=== PATIENT | male | born 1935 | race Caucasian/White ===

== ENCOUNTER 2017-07-18 18:01 | Inpatient (IN) | payer MEDICARE, OTHER ==
[~2017-07-18] VITALS: Ht 157.5 cm; Wt 75.5 kg
[2017-07-18 18:07] VITALS: Ht 157.5 cm; Wt 75.5 kg
--- NOTE | 2017-07-18 19:40 | ERA ---
ER Documentation Chief Complaint Date/Time DATE: 07/18/17 TIME: 19:37 Chief Complaint PT SENT BY PMD FOR HYPOGLYCEMIA HPI Patient is an 81-year-old male who presents to the ER asymptomatic with a low blood sugar reading in clinic of 41. He states that he had a routine visit with his primary care physician who checked his blood sugar and found it to be low. He takes metformin and glipizide, and last took these medications at 930 this morning. He states that he has been eating normally today. He denies dizziness, generalized weakness, diaphoresis, nausea. He denies fever.His PMD is concerned that he may have taken extra doses of his medication. ROS All systems reviewed and are negative except as per history of present illness. Medications Home Meds Reported Medications Beclomethasone Dip* (Qvar 40*) 7.3 Gm Inha, 1 PUFF INH BID, #1 INHALER 07/18/17 Aspirin (Aspir-Low) 81 Mg Tablet.dr, 81 MG PO DAILY 07/18/17 Rosuvastatin Calcium* (Crestor*) 40 Mg Tablet, 40 MG PO QHS, #30 TAB 07/18/17 Clopidogrel Bisulfate* (Clopidogrel Bisulfate*) 75 Mg Tablet, 75 MG PO DAILY, # 30 TAB 07/18/17 Omeprazole* (Omeprazole*) 20 Mg Capsule.dr, 20 MG PO BID, #60 CAP 07/18/17 Tamsulosin Hcl* (Tamsulosin Hcl*) 0.4 Mg Cap.er.24h, 0.4 MG PO DAILY, CAP 07/18/17 Metformin* (Glucophage*) 500 Mg Tab, 500 MG PO WITH LUNCH DINNER, #60 TAB 07/18/17 Clonazepam* (Clonazepam*) 0.5 Mg Tablet, 0.5 MG PO QHS, TAB 07/18/17 Allergies Allergies: Coded Allergies: No Known Allergy (Verified , 07/18/17) PMhx/Soc Past medical history: Diabetes mellitus, hypertension, peripheral vascular disease, atrial fibrillation (based on admission in 2006, patient is not aware of this diagnosis) Past surgical history: Pacemaker Social history: Denies tobacco or alcohol FmHx Family History: No coronary disease, No diabetes Physical Exam Vitals Vital Signs Date Time Temp Pulse Resp B/P Pulse Ox O2 Delivery O2 Flow Rate FiO2 07/18/17 22:00 97.3 104 18 168/97 96 Room Air 07/18/17 19:20 97.3 105 18 174/86 100 Room Air 07/18/17 18:07 97.3 84 18 172/87 99 Physical Exam Const: Alert, no acute distress Head: Atraumatic Eyes: Normal Conjunctiva, No pallor, no icterus ENT: Normal External Ears, Nose and Mouth. Moist mucous membranes. Neck: Full range of motion..~ No meningismus. Resp: Clear to auscultation bilaterally, No wheezes, no rales Cardio: Irregularly irregular rhythm, mild tachycardia, no murmurs Abd: Soft, non tender, non distended. Skin: No petechiae or rashes Back: No midline or flank tenderness Ext: No cyanosis, or edema Neur: Awake and alert, Cranial nerves II through XII intact bilaterally, strength and sensation full in 4 extremities. Psych: Normal Mood and Affect Result Diagram: 07/18/17194307/18/171944 Results 24 hrs Laboratory Tests Test 07/18/17 19:06 07/18/17 19:44 07/18/17 19:45 07/18/17 20:59 Bedside Glucose 81mg/dL 41mg/dL White Blood Count 6.910^3/ul Red Blood Count 4.5210^6/ul Hemoglobin 14.0g/dl Hematocrit 41.2% Mean Corpuscular Volume 91.2fl Mean Corpuscular Hemoglobin 31.0pg Mean Corpuscular Hemoglobin Concent 34.0g/dl Red Cell Distribution Width 15.7% Platelet Count 84493^3/UL Mean Platelet Volume 9.9fl Neutrophils % 82.1% Lymphocytes % 8.1% Monocytes % 7.8% Eosinophils % 1.4% Basophils % 0.3% Nucleated Red Blood Cells % 0.0/100WBC Neutrophils # (Manual) 5.710^3/ul Lymphocytes # 0.610^3/ul Monocytes # 0.510^3/ul Eosinophils # 0.110^3/ul Basophils # 0.010^3/ul Nucleated Red Blood Cells # 0.010^3/ul Sodium Level 139mmol/L Potassium Level 4.5mmol/L Chloride Level 104mmol/L Carbon Dioxide Level 25mmol/L Anion Gap 15 Blood Urea Nitrogen 20mg/dl Creatinine 1.63mg/dl Glucose Level 38mg/dl Calcium Level 9.7mg/dl Test 07/18/17 21:55 07/18/17 22:31 07/18/17 23:01 07/18/17 23:34 Bedside Glucose 26mg/dL 78mg/dL 44mg/dL 47mg/dL Current Medications Medications (Trade) Dose Ordered Sig/Alina Route PRN Reason Start Time Stop Time Status Last Admin Dose Admin Octreotide Acetate (Sandostatin) 50 mcg ONCE ONCE SC 07/18/17 21:00 07/18/17 21:01 DC 07/18/17 21:27 Ondansetron HCl (Zofran Inj) 4 mg ER BRIDGE PRN IV NAUSEA AND/OR VOMITING 07/18/17 21:00 07/19/17 20:59 Acetaminophen 650 mg 650 mg ER BRIDGE PRN PO MILD PAIN/FEVER 07/18/17 21:00 07/19/17 20:59 Dextrose (D10w) 1,000 ml @ 50 mls/hr Q20H IV 07/18/17 21:30 07/18/17 21:27 Ondansetron HCl (Zofran Inj) 4 mg ONCE STAT IV 07/18/17 21:18 07/18/17 21:19 DC 07/18/17 21:27 Dextrose (D50w Syringe) 50 ml ONCE ONCE IV 07/18/17 22:00 07/18/17 22:01 DC 07/18/17 22:08 Octreotide Acetate (Sandostatin) 50 mcg ONCE ONCE IV 07/18/17 22:00 07/18/17 22:01 DC 07/18/17 22:08 Dextrose (D50w Syringe) 50 ml STK-MED ONCE .ROUTE 07/18/17 21:57 07/18/17 21:58 DC Glucagon (Glucagen) 1 mg ONCE ONCE IV 07/18/17 23:09 07/18/17 23:10 DC 07/18/17 23:22 Procedures/MDM EKG read by me: Time 2028, rate 105 Rhythm: Atrial fibrillation and flutter with mild tachycardia [place]: Normal Intervals: Normal ST-T waves: no ischemic changes Ectopy: No Q-waves: No Impression: Atrial fibrillation and flutter with mild tachycardia, no ischemic changes MDM: Patient is an 81-year-old male sent to the ER from his primary care clinic for hypoglycemia. The patient stated that he has been asymptomatic, but he had a glucose of 51 at the clinic. In the ER, the patient initially had a normal blood sugar, but on repeat assessment it dropped to the 40s. The patient takes glipizide. I spoke with his PMD, who stated he is concerned that the patient may have accidentally taken an extra dose of his medication because he had a poorly organized pillbox. The patient was given p.o. food and juice, and on reassessment he had continued hypoglycemia. He was therefore given octreotide and IV dextrose drip, and he had recurrent hypoglycemia. He was given an amp of D50, second dose of IV octreotide, and a dose of IV glucagon, and his glucose was still in the 40s. He was upgraded to the ICU. His IV dextrose drip will be titrated, and an additional doses of glucagon and octreotide will be given. There is no evidence of significant electrolyte abnormality. The patient has mild renal insufficiency of unknown duration. There is no evidence of infection.I confirmed that the patient has chronic atrial fibrillation. He has mild tachycardia, but does not require rate control at this time. Critical Care Time: 40 minutes Treatments/Evaluations: Close monitoring and treatment of unstable vital signs, cardiorespiratory, and neurologic status. This time includes serial re- evaluations at the bedside, multiple administrations of IV medication for acutely deteriorating condition, discussing the case with the patient and the patient's family. This time does not include all procedures stated elsewhere in this record. This time also includes reviewing old records, labs and radiological studies. This time includes examining and re-examining the patient. Additionally, this time also includes arranging care with admitting physician. Departure Diagnosis: Primary Impression: Hypoglycemia secondary to sulfonylurea Qualified Code: T38.3X1A - Hypoglycemia secondary to sulfonylurea, accidental or unintentional, initial encounter Additional Impression: Atrial fibrillation and flutter Condition: Serious IGNACIO ROACH MD Jul 18, 2017 19:40
[2017-07-18] MEDS ORDERED: CLON0.5T4 PO (20:03)
[2017-07-18] MEDS ORDERED: METF500T4 PO (20:04)
[2017-07-18] MEDS ORDERED: TAMS0.4C2 PO (20:04)
[2017-07-18] MEDS ORDERED: OMEP20CA16 PO (20:06)
[2017-07-18] MEDS ORDERED: CLOP75TA4 PO (20:08)
[2017-07-18] MEDS ORDERED: ROSU40TA35 PO (20:14)
[2017-07-18] MEDS ORDERED: BECL8.7A INH (20:15)
[2017-07-18] MEDS ORDERED: ASPI81TA50 PO (20:15)
[2017-07-18 20:25] LABS: CALCIUM 9.7 mg/dl (8.4-10.2); CREATININE 1.63 mg/dl (0.61-1.24); POTASSIUM 4.5 mmol/L (3.5-5.1)
[2017-07-18] MEDS ORDERED: OCTREOTIDE 50 MCG INJ SC ONE (21:00)
[2017-07-18] MEDS ORDERED: ACETAMINOPHEN 325 MG TAB PO PRN (21:00)
[2017-07-18] MEDS ORDERED: ONDANSETRON 4 MG INJ IV PRN (21:00)
[2017-07-18] MEDS ORDERED: ONDANSETRON 4 MG INJ IV STA (21:18)
[2017-07-18] MEDS ORDERED: DEXTROSE 10% 1,000 ML IV SCH (21:30)
[2017-07-18] MEDS ORDERED: DEXTROSE 50% 50 ML SYRINGE ONE (21:57)
[2017-07-18] MEDS ORDERED: DEXTROSE 50% 50 ML SYRINGE IV ONE (22:00)
[2017-07-18] MEDS ORDERED: OCTREOTIDE 50 MCG INJ IV ONE (22:00)
[2017-07-18 22:30] LABS: ABNORMAL IP MESSAGE 1; BASOPHILS % 0.3 % (0.0-2.0); EOSINOPHILS # 0.1 10^3/ul (0.0-0.5); EOSINOPHILS % 1.4 % (0.0-7.0); HEMATOCRIT 41.2 % (42.0-52.0); LYMPHOCYTES # 0.6 10^3/ul (0.8-2.9); LYMPHOCYTES % 8.1 % (15.0-51.0); MEAN CORPUSCULAR VOLUME 91.2 fl (82.0-101.0); MEAN PLATELET VOLUME 9.9 fl (7.4-10.4); MONOCYTE # 0.5 10^3/ul (0.3-0.9); MONOCYTES % 7.8 % (0.0-11.0); NEUTROPHILS % 82.1 % (39.0-77.0); PLATELET COUNT 198 10^3/UL (140-415); POSITIVE DIFF @See below; RED BLOOD COUNT 4.52 10^6/ul (4.70-6.10); RED CELL DISTRIBUTION WIDTH 15.7 % (11.5-14.5); WHITE BLOOD COUNT 6.9 10^3/ul (4.8-10.8)
[2017-07-18] MEDS ORDERED: GLUCAGON 1 MG INJ IV ONE (23:09)
[2017-07-19] MEDS ORDERED: DEXTROSE 10% 1,000 ML IV SCH ×2 (01:00→08:30)
[2017-07-19] MEDS ORDERED: DEXAMETHASONE 10 MG/ML 1 ML INJ IV ONE (01:00)
[2017-07-19] MEDS: DEXTROSE 10% 1,000 ML IV SCH ×2 (03:26→08:49)
[2017-07-19 08:08] LABS: ADD UMIC NO; UR ASCORBIC ACID NEGATIVE (NEGATIVE); UR BILIRUBIN (Dip) NEGATIVE (NEGATIVE); UR BLOOD (Dip) NEGATIVE (NEGATIVE); UR CLARITY CLEAR (CLEAR); UR COLOR STRAW (YELLOW); UR GLUCOSE (Dip) NEGATIVE (NEGATIVE); UR KETONES (Dip) NEGATIVE (NEGATIVE); UR LEUKOCYTE ESTERASE (Dip) NEGATIVE Leu/ul (NEGATIVE); UR NITRITE (Dip) NEGATIVE (NEGATIVE); UR SPECIFIC GRAVITY (Dip) 1.006 (1.003-1.030); UR TOTAL PROTEIN (Dip) NEGATIVE (NEGATIVE); UR UROBILINOGEN (Dip) NEGATIVE (NEGATIVE)
[2017-07-19 09:00] VITALS: TEMP 98.1
[2017-07-19 10:38] VITALS: BP 177/87; PULSE 87; RESP 19
[2017-07-19 14:12] LABS: CALCIUM 9.8 mg/dl (8.4-10.2); CREATININE 1.36 mg/dl (0.61-1.24); POTASSIUM 5.5 mmol/L (3.5-5.1)
[2017-07-19 14:13] LABS: CHOL/HDL RATIO 3.4 RATIO
[2017-07-19] MEDS: LINAGLIPTIN 5 MG TABLET PO SCH (14:57)
[2017-07-19 14:59] VITALS: BP 172/67; RESP 19
[2017-07-19] MEDS ORDERED: GLUCOSE GEL 15 GRAM TUBE BUCCAL PRN (15:00)
[2017-07-19] MEDS ORDERED: GLUCOSE GEL 15 GRAM TUBE PO PRN ×2 (15:00)
[2017-07-19] MEDS ORDERED: GLUCAGON 1 MG INJ IM PRN (15:00)
[2017-07-19] MEDS ORDERED: DEXTROSE 50% 50 ML SYRINGE IV PRN ×2 (15:00)
--- NOTE | 2017-07-19 16:24 | CONS ---
Date/Time of Note Date/Time of Note DATE: 07/19/17 TIME: 16:17 Assessment/Plan Assessment/Plan Additional Assessment/Plan 1. Acute kidney injury due to prerenal azotemia 2. Hypoglycemia 3. Diabetes melitus 4. Hypertension 5. Peripheral vascular disease 6. H/o atrial fibrillation 7. H/o Pacemaker placement Plan : kayexalate 15 gram PO x 1 dose now Continue IVF NS at 40 cc/hr avoid ACEI Conitnue current meds expecting pt creatinine to improve with IVF hydration will follow up. Consultation Date/Type/Reason Admit Date/Time Jul 19, 2017 at 09:20 Date of Consultation: Jul 19, 2017 Type of Consultation: NEPHROLOGY Reason for Consultation acute kidney injury Referring Provider: MICHAEL URBANO MD Hx of Present Illness 81-year-old male with PMHx of HTN,who was sent for hypoglycemia. he is noted to have Cr 1.63 and renal has been consulted for ROBINA. Past Medical History Medical History: coronary artery disease, diabetes, hypertension, other ( Diabetes mellitus, hypertension, peripheral vascular disease, atrial fibrillation (based on admission in 2006, patient is not aware of this diagnosis )) Past Surgical History Past Surgical Hx: no surgical history, other (Pacemaker placement ) Family History Significant Family History: no pertinent family hx Social History Alcohol Use: none Smoking Status: Former smoker Drug Use: none Exam/Review of Systems Vital Signs Vitals Vital Signs Date Time Temp Pulse Resp B/P Pulse Ox O2 Delivery O2 Flow Rate FiO2 07/19/17 14:59 98.0 88 19 172/67 97 07/19/17 10:38 Room Air Exam Constitutional: alert Psych: no complaints Head: normocephalic ENMT: nl external ears & nose Neck: non-tender, supple Respiratory: clear to auscultation, diminished breath sounds, normal air movement Cardiovascular: nl pulses, regular rate and rhythm Gastrointestinal: nl liver, spleen, non-tender, soft Musculoskeletal: nl extremities to inspection, nl gait and stance Extremities: normal pulses 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 Results Result Diagram: 07/18/17 1944 07/19/17 1332 Results 24 hrs Laboratory Tests Test 07/18/17 19:06 07/18/17 19:44 07/18/17 19:45 07/18/17 20:59 Bedside Glucose 81 41 *L White Blood Count 6.9 Red Blood Count 4.52 L Hemoglobin 14.0 Hematocrit 41.2 L Mean Corpuscular Volume 91.2 Mean Corpuscular Hemoglobin 31.0 Mean Corpuscular Hemoglobin Concent 34.0 Red Cell Distribution Width 15.7 H Platelet Count 198 Mean Platelet Volume 9.9 Neutrophils % 82.1 H Lymphocytes % 8.1 L Monocytes % 7.8 Eosinophils % 1.4 Basophils % 0.3 Nucleated Red Blood Cells % 0.0 Neutrophils # (Manual) 5.7 Lymphocytes # 0.6 L Monocytes # 0.5 Eosinophils # 0.1 Basophils # 0.0 Nucleated Red Blood Cells # 0.0 Sodium Level 139 Potassium Level 4.5 Chloride Level 104 Carbon Dioxide Level 25 Anion Gap 15 Blood Urea Nitrogen 20 Creatinine 1.63 H Glucose Level 38 *L Calcium Level 9.7 Test 07/18/17 21:55 07/18/17 22:31 07/18/17 23:01 07/18/17 23:34 Bedside Glucose 26 *L 78 44 *L 47 *L Test 07/18/17 23:55 07/19/17 00:31 07/19/17 01:01 07/19/17 01:32 Bedside Glucose 62 L 56 L 53 L 53 L Test 07/19/17 02:04 07/19/17 03:02 07/19/17 04:03 07/19/17 05:36 Bedside Glucose 67 L 87 87 129 Test 07/19/17 06:31 07/19/17 07:00 07/19/17 07:33 07/19/17 08:52 Bedside Glucose 163 239 H 258 H Urine Color STRAW Urine Clarity CLEAR Urine pH 7.0 Urine Specific [place] 1.006 Urine Ketones NEGATIVE Urine Nitrite NEGATIVE Urine Bilirubin NEGATIVE Urine Urobilinogen NEGATIVE Urine Leukocyte Esterase NEGATIVE Urine Hemoglobin NEGATIVE Urine Glucose NEGATIVE Urine Total Protein NEGATIVE Test 07/19/17 13:09 07/19/17 13:32 Bedside Glucose 233 H Sodium Level 135 Potassium Level 5.5 H Chloride Level 99 Carbon Dioxide Level 27 Anion Gap 15 Blood Urea Nitrogen 22 H Creatinine 1.36 H Glucose Level 252 #H Hemoglobin A1c 5.4 Calcium Level 9.8 Triglycerides Level 64 Cholesterol Level 121 LDL Cholesterol, Calculated 73 HDL Cholesterol 35 Cholesterol/HDL Ratio 3.4 Medications Medications Current Medications Aspirin (Halfprin) 81 mg DAILY PO ; Start 07/20/17 at 09:00 Clonazepam (Klonopin) 0.5 mg QHS PO ; Start 07/19/17 at 21:00 Clopidogrel Bisulfate (plaVIX) 75 mg DAILY PO ; Start 07/20/17 at 09:00 Rosuvastatin Calcium (Crestor) 40 mg QHS PO ; Start 07/19/17 at 21:00 Tamsulosin HCl (Flomax) 0.4 mg DAILY PO ; Start 07/20/17 at 09:00 Pantoprazole (Protonix Tab) 40 mg DAILY@06 PO ; Start 07/20/17 at 06:00 Diagnostic Test (Pha) (Accu-Chek) 1 ea 02 XX ; Start 07/20/17 at 02:00 Linagliptin 5 mg 5 mg DAILY PO Last administered on 07/19/17t 14:57; Admin Dose 5 MG; Start 07/19/17 at 13:30 Sodium Chloride (NS) 1,000 ml @ 40 mls/hr Q24H IV ; Start 07/19/17 at 14:00 Miscellaneous Information 1 ea NOTE XX ; Start 07/19/17 at 15:00 Glucose (Glutose) 15 gm Q15M PRN PO DECREASED GLUCOSE; Start 07/19/17 at 15:00 Glucose (Glutose) 22.5 gm Q15M PRN PO DECREASED GLUCOSE; Start 07/19/17 at 15:00 Dextrose (D50w Syringe) 25 ml Q15M PRN IV DECREASED GLUCOSE; Start 07/19/17 at 15:00 Dextrose (D50w Syringe) 50 ml Q15M PRN IV DECREASED GLUCOSE; Start 07/19/17 at 15:00 Glucagon (Glucagen) 1 mg Q15M PRN IM DECREASED GLUCOSE; Start 07/19/17 at 15:00 Glucose (Glutose) 15 gm Q15M PRN BUCCAL DECREASED GLUCOSE; Start 07/19/17 at 15: 00 JAUN LUEVANO MD Jul 19, 2017 16:24
[2017-07-19] MEDS ORDERED: NA POLYST SULFON 15 GM/60 ML BTL PO ONE (16:30)
--- NOTE | 2017-07-19 16:38 | HP ---
Date/Time of Note Date/Time of Note DATE: 07/19/17 TIME: 13:17 Assessment/Plan Lines/Catheters IV Catheter Type (from [facility]): Peripheral IV Urinary Cath still in place: No Assessment/Plan Assessment/Plan -Hypoglycemia secondary to sulfonylurea- RESOLVED -Diabetes mellitus -hypertension -peripheral vascular disease -atrial fibrillation (based on admission in 2006, patient is not aware of this diagnosis) - SP Pacemaker HPI/ROS Admit Date/Time Admit Date/Time Jul 19, 2017 at 09:20 Hx of Present Illness Patient is an 81-year-old male who presents to the ER asymptomatic with a low blood sugar reading in clinic of 41. He states that he had a routine visit with his primary care physician who checked his blood sugar and found it to be low. He takes metformin and glipizide, and last took these medications at 930 this morning. He states that he has been eating normally today. He denies dizziness, generalized weakness, diaphoresis, nausea. He denies fever.His PMD is concerned that he may have taken extra doses of his medication. ROS All systems reviewed and are negative except as per history of present illness. Allergies Allergies: Coded Allergies: No Known Allergy (Verified , 07/18/17) ROS Hypoglycemia secondary to sulfonylurea Atrial fibrillation and flutter Diabetes mellitus, hypertension, peripheral vascular disease, atrial fibrillation (based on admission in 2006, patient is not aware of this diagnosis ) Past surgical history: Pacemaker Social history: Denies tobacco or alcohol FmHx Family History: No coronary disease, No diabetes PMH/Family/Social Past Medical History PMhx/Soc Past medical history: Diabetes mellitus, hypertension, peripheral vascular disease, atrial fibrillation (based on admission in 2006, patient is not aware of this diagnosis) Past surgical history: Pacemaker Social history: Denies tobacco or alcohol FmHx Family History: No coronary disease, No diabetes Social History Smoking Status: Former smoker Exam/Review of Systems Vital Signs Vitals Vital Signs Date Time Temp Pulse Resp B/P Pulse Ox O2 Delivery O2 Flow Rate FiO2 07/19/17 10:38 97.6 87 19 177/87 97 Room Air Labs Result Diagram: 07/18/17194307/18/171944 Medications Medications Current Medications Dextrose 1,000 ml @ 75 mls/hr [id number] IV Last administered on 07/19/17t 00:53; Admin Dose 75 MLS/HR; Start 07/19/17 at 01:00 Dextrose 1,000 ml @ 150 mls/hr Q6H40M IV Last administered on 07/19/17 03:26; Admin Dose 150 MLS/HR; Start 07/19/17 at 03:00 Dextrose (D10w) 1,000 ml @ 70 mls/hr [id number] IV Last administered on 07/19/17 08:23; Admin Dose 70 MLS/HR; Start 07/19/17 at 08:30; Stop 07/19/17 at 22:47 SARAN LEON Jul 19, 2017 13:28
[2017-07-19] MEDS: SOD CHLORIDE 0.9% 1,000 ML IV SCH (16:42)
[2017-07-19] MEDS ORDERED: INSULIN ASPART [NOVOLOG] 3 ML PEN SC SCH ×3 (17:00→18:05)
[2017-07-19] MEDS ORDERED: metFORMIN 500 MG TAB PO SCH (18:05)
[2017-07-19] MEDS: INSULIN ASPART [NOVOLOG] 3 ML PEN SC SCH ×2 (18:19→21:00)
[2017-07-19 20:56] VITALS: BP 164/79; RESP 18
[2017-07-19] MEDS: clonAZEPAM 0.5 MG TAB PO SCH (21:10)
[2017-07-19] MEDS: ROSUVASTATIN CALCIUM 40 MG TABLET PO SCH (21:10)
[2017-07-20] MEDS: ACCU-CHEK XX SCH (02:00)
[2017-07-20] MEDS ORDERED: ACCU-CHEK XX SCH ×2 (02:00)
[2017-07-20 02:53] VITALS: BP 149/79; RESP 20
[2017-07-20] MEDS: PANTOPRAZOLE (EC) 40 MG TAB PO SCH (06:17)
[2017-07-20 06:41] LABS: BASOPHILS % 0.3 % (0.0-2.0); EOSINOPHILS # 0.3 10^3/ul (0.0-0.5); EOSINOPHILS % 3.4 % (0.0-7.0); HEMATOCRIT 43.7 % (42.0-52.0); HEMOGLOBIN 14.2 g/dl (14.0-18.0); LYMPHOCYTES % 11.3 % (15.0-51.0); MEAN CORPUSCULAR HGB CONC 32.5 g/dl (32.0-37.0); MEAN CORPUSCULAR VOLUME 92.2 fl (82.0-101.0); MEAN PLATELET VOLUME 9.7 fl (7.4-10.4); MONOCYTE # 0.6 10^3/ul (0.3-0.9); MONOCYTES % 6.9 % (0.0-11.0); NEUTROPHILS % 77.7 % (39.0-77.0); PLATELET COUNT 184 10^3/UL (140-415); RED BLOOD COUNT 4.74 10^6/ul (4.70-6.10); RED CELL DISTRIBUTION WIDTH 15.5 % (11.5-14.5); WHITE BLOOD COUNT 9.2 10^3/ul (4.8-10.8)
[2017-07-20 07:23] LABS: CALCIUM 9.6 mg/dl (8.4-10.2); CREATININE 1.36 mg/dl (0.61-1.24); POTASSIUM 4.9 mmol/L (3.5-5.1)
[2017-07-20 08:00] VITALS: BP 152/68; RESP 20
[2017-07-20] MEDS: INSULIN ASPART [NOVOLOG] 3 ML PEN SC SCH ×4 (08:00→20:18)
[2017-07-20] MEDS: TAMSULOSIN (SR) 0.4 MG CAP PO SCH (09:07)
[2017-07-20] MEDS: LINAGLIPTIN 5 MG TABLET PO SCH (09:07)
[2017-07-20] MEDS: ASPIRIN (EC) 81 MG TAB PO SCH (09:07)
[2017-07-20] MEDS: CLOPIDOGREL 75 MG TAB PO SCH (09:07)
[2017-07-20] MEDS: SOD CHLORIDE 0.9% 1,000 ML IV SCH (09:15)
[2017-07-20 14:00] VITALS: BP 132/71; RESP 20
--- NOTE | 2017-07-20 15:30 | PN ---
Date/Time of Note Date/Time of Note DATE: 07/20/17 TIME: 15:22 Assessment/Plan VTE Prophylaxis VTE Prophylaxis Intervention: SCD's Lines/Catheters IV Catheter Type (from Nrs): Peripheral IV Urinary Cath still in place: No Assessment/Plan Assessment/Plan - Hyperkalemia- resolved -Hypoglycemia secondary to sulfonylurea- RESOLVED -Diabetes mellitus -hypertension -peripheral vascular disease -atrial fibrillation (based on admission in 2006, patient is not aware of this diagnosis) - SP Pacemaker Subjective 24 Hr Interval Summary Free Text/Dictation 1230- having lunch, feels better, no new complaintsdw staff. Respiratory: no complaints Cardiovascular: no complaints Gastrointestinal: no complaints Genitourinary: no complaints Musculoskeletal: no complaints Skin: no complaints Exam/Review of Systems Vital Signs Vitals Vital Signs Date Time Temp Pulse Resp B/P Pulse Ox O2 Delivery O2 Flow Rate FiO2 07/20/17 08:00 98.6 90 20 152/68 96 07/19/17 10:38 Room Air Intake and Output 07/19/17 07/19/17 07/20/17 15:00 23:00 07:00 Intake Total 720 ml 1230 ml Balance 720 ml 1230 ml Exam Constitutional: alert, oriented, well developed Respiratory: clear to auscultation, normal air movement Cardiovascular: nl pulses, regular rate and rhythm Gastrointestinal: non-tender, soft Musculoskeletal: nl extremities to inspection Extremities: normal pulses Neurological: nl mental status, nl speech Results Result Diagram: 07/20/17 0600 07/20/17 0530 Results 24 hrs Laboratory Tests Test 07/19/17 17:45 07/19/17 21:14 07/20/17 05:30 07/20/17 06:00 Bedside Glucose 159 151 Sodium Level 139 Potassium Level 4.9 Chloride Level 102 Carbon Dioxide Level 28 Anion Gap 14 Blood Urea Nitrogen 24 H Creatinine 1.36 H Glucose Level 130 # Calcium Level 9.6 White Blood Count 9.2 # Red Blood Count 4.74 Hemoglobin 14.2 Hematocrit 43.7 Mean Corpuscular Volume 92.2 Mean Corpuscular Hemoglobin 30.0 Mean Corpuscular Hemoglobin Concent 32.5 Red Cell Distribution Width 15.5 H Platelet Count 184 Mean Platelet Volume 9.7 Neutrophils % 77.7 H Lymphocytes % 11.3 L Monocytes % 6.9 Eosinophils % 3.4 Basophils % 0.3 Nucleated Red Blood Cells % 0.0 Neutrophils # (Manual) 7.2 Lymphocytes # 1.0 Monocytes # 0.6 Eosinophils # 0.3 Basophils # 0.0 Nucleated Red Blood Cells # 0.0 Hemoglobin A1c 6.0 H Test 07/20/17 08:09 07/20/17 12:47 Bedside Glucose 116 123 Medications Medications Current Medications Aspirin (Halfprin) 81 mg DAILY PO Last administered on 07/20/17 09:07; Admin Dose 81 MG; Start 07/20/17 at 09:00 Clonazepam (Klonopin) 0.5 mg QHS PO Last administered on 07/19/17 21:10; Admin Dose 0.5 MG; Start 07/19/17 at 21:00 Clopidogrel Bisulfate (plaVIX) 75 mg DAILY PO Last administered on 07/20/17 09: 07; Admin Dose 75 MG; Start 07/20/17 at 09:00 Rosuvastatin Calcium (Crestor) 40 mg QHS PO Last administered on 07/19/17 21:10 ; Admin Dose 40 MG; Start 07/19/17 at 21:00 Tamsulosin HCl (Flomax) 0.4 mg DAILY PO Last administered on 07/20/17 09:07; Admin Dose 0.4 MG; Start 07/20/17 at 09:00 Pantoprazole (Protonix Tab) 40 mg DAILY@06 PO Last administered on 07/20/17 06: 17; Admin Dose 40 MG; Start 07/20/17 at 06:00 Diagnostic Test (Pha) (Accu-Chek) 1 ea 02 XX ; Start 07/20/17 at 02:00 Linagliptin 5 mg 5 mg DAILY PO Last administered on 07/20/17 09:07; Admin Dose 5 MG; Start 07/19/17 at 13:30 Sodium Chloride (NS) 1,000 ml @ 40 mls/hr Q24H IV Last administered on 09:15; Admin Dose 40 MLS/HR; Start 07/19/17 at 14:00 Miscellaneous Information 1 ea NOTE XX ; Start 07/19/17 at 15:00 Glucose (Glutose) 15 gm Q15M PRN PO DECREASED GLUCOSE; Start 07/19/17 at 15:00 Glucose (Glutose) 22.5 gm Q15M PRN PO DECREASED GLUCOSE; Start 07/19/17 at 15:00 Dextrose (D50w Syringe) 25 ml Q15M PRN IV DECREASED GLUCOSE; Start 07/19/17 at 15:00 Dextrose (D50w Syringe) 50 ml Q15M PRN IV DECREASED GLUCOSE; Start 07/19/17 at 15:00 Glucagon (Glucagen) 1 mg Q15M PRN IM DECREASED GLUCOSE; Start 07/19/17 at 15:00 Glucose (Glutose) 15 gm Q15M PRN BUCCAL DECREASED GLUCOSE; Start 07/19/17 at 15: 00 SARAN LEON Jul 20, 2017 15:30
[2017-07-20 20:09] VITALS: BP 102/80; RESP 21
[2017-07-20] MEDS: clonAZEPAM 0.5 MG TAB PO SCH (20:20)
[2017-07-20] MEDS: ROSUVASTATIN CALCIUM 40 MG TABLET PO SCH (20:20)
--- NOTE | 2017-07-20 21:43 | CONS ---
Date/Time of Note Date/Time of Note DATE: 07/20/17 TIME: 21:41 Assessment/Plan Assessment/Plan Chief Complaint/Hosp Course 81-year-old male with PMHx of HTN,who was sent for hypoglycemia. he is noted to have Cr 1.63 and renal has been consulted for ROBINA. Problems: Additional Assessment/Plan 1. Acute kidney injury due to prerenal azotemia 2. Hypoglycemia 3. Diabetes melitus 4. Hypertension 5. Peripheral vascular disease 6. H/o atrial fibrillation 7. H/o Pacemaker placement Plan : Cr improved to 1.36 Continue IVF NS at 40 cc/hr avoid ACEI Conitnue current meds expecting pt creatinine to improve with IVF hydration will follow up. Consultation Date/Type/Reason Admit Date/Time Jul 19, 2017 at 08:18 Initial Consult Date 07/19/17 Type of Consultation: NEPHROLOGY Referring Provider: MICHAEL URBANO MD Exam/Review of Systems Vital Signs Vitals Vital Signs Date Time Temp Pulse Resp B/P Pulse Ox O2 Delivery O2 Flow Rate FiO2 07/20/17 20:09 97.1 95 21 102/80 97 07/19/17 10:38 Room Air Intake and Output 07/19/17 07/19/17 07/20/17 15:00 23:00 07:00 Intake Total 720 ml 1230 ml Balance 720 ml 1230 ml Exam Constitutional: alert Respiratory: clear to auscultation, diminished breath sounds, normal air movement Cardiovascular: nl pulses, regular rate and rhythm Gastrointestinal: nl liver, spleen, non-tender, soft Musculoskeletal: nl extremities to inspection, nl gait and stance Extremities: normal pulses 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7 H Lymphocytes % 11.3 L Monocytes % 6.9 Eosinophils % 3.4 Basophils % 0.3 Nucleated Red Blood Cells % 0.0 Neutrophils # (Manual) 7.2 Lymphocytes # 1.0 Monocytes # 0.6 Eosinophils # 0.3 Basophils # 0.0 Nucleated Red Blood Cells # 0.0 Hemoglobin A1c 6.0 H Bedside Glucose 116 123 Test 07/20/17 17:17 07/20/17 20:18 Bedside Glucose 140 145 Medications Medications Current Medications Aspirin (Halfprin) 81 mg DAILY PO Last administered on 07/20/17 09:07; Admin Dose 81 MG; Start 07/20/17 at 09:00 Clonazepam (Klonopin) 0.5 mg QHS PO Last administered on 07/20/17 20:20; Admin Dose 0.5 MG; Start 07/19/17 at 21:00 Clopidogrel Bisulfate (plaVIX) 75 mg DAILY PO Last administered on 07/20/17 09: 07; Admin Dose 75 MG; Start 07/20/17 at 09:00 Rosuvastatin Calcium (Crestor) 40 mg QHS PO Last administered on 07/20/17 20:20 ; Admin Dose 40 MG; Start 07/19/17 at 21:00 Tamsulosin HCl (Flomax) 0.4 mg DAILY PO Last administered on 07/20/17 09:07; Admin Dose 0.4 MG; Start 07/20/17 at 09:00 Pantoprazole (Protonix Tab) 40 mg DAILY@06 PO Last administered on 07/20/17 06: 17; Admin Dose 40 MG; Start 07/20/17 at 06:00 Diagnostic Test (Pha) (Accu-Chek) 1 ea 02 XX ; Start 07/20/17 at 02:00 Linagliptin 5 mg 5 mg DAILY PO Last administered on 07/20/17 09:07; Admin Dose 5 MG; Start 07/19/17 at 13:30 Sodium Chloride (NS) 1,000 ml @ 40 mls/hr Q24H IV Last administered on 09:15; Admin Dose 40 MLS/HR; Start 07/19/17 at 14:00 Miscellaneous Information 1 ea NOTE XX ; Start 07/19/17 at 15:00 Glucose (Glutose) 15 gm Q15M PRN PO DECREASED GLUCOSE; Start 07/19/17 at 15:00 Glucose (Glutose) 22.5 gm Q15M PRN PO DECREASED GLUCOSE; Start 07/19/17 at 15:00 Dextrose (D50w Syringe) 25 ml Q15M PRN IV DECREASED GLUCOSE; Start 07/19/17 at 15:00 Dextrose (D50w Syringe) 50 ml Q15M PRN IV DECREASED GLUCOSE; Start 07/19/17 at 15:00 Glucagon (Glucagen) 1 mg Q15M PRN IM DECREASED GLUCOSE; Start 07/19/17 at 15:00 Glucose (Glutose) 15 gm Q15M PRN BUCCAL DECREASED GLUCOSE; Start 07/19/17 at 15: 00 JAUN LUEVANO MD Jul 20, 2017 21:43
[2017-07-21] MEDS: ACCU-CHEK XX SCH (01:26)
[2017-07-21 03:02] VITALS: BP 139/63; RESP 20
[2017-07-21] MEDS: PANTOPRAZOLE (EC) 40 MG TAB PO SCH (05:05)
[2017-07-21 06:23] LABS: BASOPHIL # 0.1 10^3/ul (0.0-0.1); BASOPHILS % 0.7 % (0.0-2.0); EOSINOPHILS # 0.5 10^3/ul (0.0-0.5); EOSINOPHILS % 6.1 % (0.0-7.0); HEMATOCRIT 43.8 % (42.0-52.0); HEMOGLOBIN 14.6 g/dl (14.0-18.0); LYMPHOCYTES # 1.2 10^3/ul (0.8-2.9); MEAN CORPUSCULAR HEMOGLOBIN 30.2 pg (29.0-33.0); MEAN CORPUSCULAR HGB CONC 33.3 g/dl (32.0-37.0); MEAN CORPUSCULAR VOLUME 90.7 fl (82.0-101.0); MEAN PLATELET VOLUME 9.6 fl (7.4-10.4); MONOCYTE # 0.7 10^3/ul (0.3-0.9); MONOCYTES % 8.6 % (0.0-11.0); NEUTROPHILS % 69.3 % (39.0-77.0); PLATELET COUNT 170 10^3/UL (140-415); RED BLOOD COUNT 4.83 10^6/ul (4.70-6.10); WHITE BLOOD COUNT 7.7 10^3/ul (4.8-10.8)
[2017-07-21 06:51] LABS: CALCIUM 9.5 mg/dl (8.4-10.2); CREATININE 1.53 mg/dl (0.61-1.24); POTASSIUM 4.2 mmol/L (3.5-5.1)
[2017-07-21 08:00] VITALS: BP 149/77; RESP 18
[2017-07-21] MEDS: INSULIN ASPART [NOVOLOG] 3 ML PEN SC SCH ×4 (08:00→20:29)
[2017-07-21] MEDS: CLOPIDOGREL 75 MG TAB PO SCH (08:44)
[2017-07-21] MEDS: ASPIRIN (EC) 81 MG TAB PO SCH (08:44)
[2017-07-21] MEDS: LINAGLIPTIN 5 MG TABLET PO SCH (08:44)
[2017-07-21] MEDS: TAMSULOSIN (SR) 0.4 MG CAP PO SCH (08:44)
[2017-07-21] MEDS: SOD CHLORIDE 0.9% 1,000 ML IV SCH (11:46)
[2017-07-21 14:00] VITALS: BP_SYST 110; BP_SYST 128; BP_DIAS 60; BP_DIAS 80; RESP 20
--- NOTE | 2017-07-21 14:40 | CONS ---
Date/Time of Note Date/Time of Note DATE: 07/21/17 TIME: 14:38 Assessment/Plan Assessment/Plan Chief Complaint/Hosp Course 81-year-old male with PMHx of HTN,who was sent for hypoglycemia. he is noted to have Cr 1.63 and renal has been consulted for ROBINA. Problems: Additional Assessment/Plan 1. Acute kidney injury due to prerenal azotemia 2. Hypoglycemia 3. Diabetes melitus 4. Hypertension 5. Peripheral vascular disease 6. H/o atrial fibrillation 7. H/o Pacemaker placement Plan : Cr bumped to 1.53- will increase IVF to 70 cc.hr avoid ACEI Conitnue current meds expecting pt creatinine to improve with IVF hydration will follow up. Consultation Date/Type/Reason Admit Date/Time Jul 19, 2017 at 08:18 Initial Consult Date 07/19/17 Type of Consultation: NEPHROLOGY Referring Provider: MICHAEL URBANO MD 24 HR Interval Summary Free Text/Dictation Cr bumped to 1,53, Bp stable Exam/Review of Systems Vital Signs Vitals Vital Signs Date Time Temp Pulse Resp B/P Pulse Ox O2 Delivery O2 Flow Rate FiO2 07/21/17 08:00 98.6 90 18 149/77 98 07/19/17 10:38 Room Air Intake and Output 07/20/17 07/20/17 07/21/17 15:00 23:00 07:00 Intake Total 440 ml 1100 ml 1000 ml Balance 440 ml 1100 ml 1000 ml Exam Constitutional: alert Psych: no complaints Head: normocephalic ENMT: nl external ears & nose Neck: non-tender, supple Respiratory: clear to auscultation, diminished breath sounds, normal air movement Cardiovascular: nl pulses, regular rate and rhythm Gastrointestinal: nl liver, spleen, non-tender, soft Musculoskeletal: nl extremities to inspection, nl gait and stance Extremities: normal pulses Neurological: HOSTAGE NEGOTIATOR II-XII intact Results Result Diagram: 07/21/17 0537 07/21/17 0537 Results 24 hrs Laboratory Tests Test 07/20/17 17:17 07/20/17 20:18 07/21/17 05:37 07/21/17 08:38 Bedside Glucose 140 145 107 White Blood Count 7.7 Red Blood Count 4.83 Hemoglobin 14.6 Hematocrit 43.8 Mean Corpuscular Volume 90.7 Mean Corpuscular Hemoglobin 30.2 Mean Corpuscular Hemoglobin Concent 33.3 Red Cell Distribution Width 15.0 H Platelet Count 170 Mean Platelet Volume 9.6 Neutrophils % 69.3 Lymphocytes % 15.0 Monocytes % 8.6 Eosinophils % 6.1 Basophils % 0.7 Nucleated Red Blood Cells % 0.0 Neutrophils # (Manual) 5.3 Lymphocytes # 1.2 Monocytes # 0.7 Eosinophils # 0.5 Basophils # 0.1 Nucleated Red Blood Cells # 0.0 Sodium Level 138 Potassium Level 4.2 Chloride Level 102 Carbon Dioxide Level 29 Anion Gap 11 Blood Urea Nitrogen 30 H Creatinine 1.53 H Glucose Level 112 Calcium Level 9.5 Test 07/21/17 12:13 Bedside Glucose 128 Medications Medications Current Medications Aspirin (Halfprin) 81 mg DAILY PO Last administered on 07/21/17 08:44; Admin Dose 81 MG; Start 07/20/17 at 09:00 Clonazepam (Klonopin) 0.5 mg QHS PO Last administered on 07/20/17 20:20; Admin Dose 0.5 MG; Start 07/19/17 at 21:00 Clopidogrel Bisulfate (plaVIX) 75 mg DAILY PO Last administered on 07/21/17 08: 44; Admin Dose 75 MG; Start 07/20/17 at 09:00 Rosuvastatin Calcium (Crestor) 40 mg QHS PO Last administered on 07/20/17 20:20 ; Admin Dose 40 MG; Start 07/19/17 at 21:00 Tamsulosin HCl (Flomax) 0.4 mg DAILY PO Last administered on 07/21/17 08:44; Admin Dose 0.4 MG; Start 07/20/17 at 09:00 Pantoprazole (Protonix Tab) 40 mg DAILY@06 PO Last administered on 07/21/17 05: 05; Admin Dose 40 MG; Start 07/20/17 at 06:00 Diagnostic Test (Pha) (Accu-Chek) 1 ea 02 XX ; Start 07/20/17 at 02:00 Linagliptin 5 mg 5 mg DAILY PO Last administered on 07/21/17 08:44; Admin Dose 5 MG; Start 07/19/17 at 13:30 Sodium Chloride (NS) 1,000 ml @ 40 mls/hr Q24H IV Last administered on 11:46; Admin Dose 40 MLS/HR; Start 07/19/17 at 14:00 Miscellaneous Information 1 ea NOTE XX ; Start 07/19/17 at 15:00 Glucose (Glutose) 15 gm Q15M PRN PO DECREASED GLUCOSE; Start 07/19/17 at 15:00 Glucose (Glutose) 22.5 gm Q15M PRN PO DECREASED GLUCOSE; Start 07/19/17 at 15:00 Dextrose (D50w Syringe) 25 ml Q15M PRN IV DECREASED GLUCOSE; Start 07/19/17 at 15:00 Dextrose (D50w Syringe) 50 ml Q15M PRN IV DECREASED GLUCOSE; Start 07/19/17 at 15:00 Glucagon (Glucagen) 1 mg Q15M PRN IM DECREASED GLUCOSE; Start 07/19/17 at 15:00 Glucose (Glutose) 15 gm Q15M PRN BUCCAL DECREASED GLUCOSE; Start 07/19/17 at 15: 00 JAUN LUEVANO MD Jul 21, 2017 14:40
--- NOTE | 2017-07-21 19:41 | PN ---
Date/Time of Note Date/Time of Note DATE: 07/21/17 TIME: 19:35 Assessment/Plan VTE Prophylaxis VTE Prophylaxis Intervention: other Lines/Catheters [facility] Peripheral IV Urinary Cath still in place: No Assessment/Plan Assessment/Plan -Hypoglycemia secondary to sulfonylurea- RESOLVED - Acute Kidney Injury- Cr ELEVATED - nephrology follows - IVF - bmp AM -Diabetes mellitus -hypertension -peripheral vascular disease -atrial fibrillation (based on admission in 2006, patient is not aware of this diagnosis) - SP Pacemaker Subjective 24 Hr Interval Summary Free Text/Dictation resting, Hypoglycemia secondary to sulfonylurea- RESOLVED,Acute Kidney Injury- Cr ELEVATED, nephrology follows- IVF, follow up bmp AM. dw staff- no new issues reported overnight - Respiratory: no complaints Cardiovascular: no complaints Gastrointestinal: no complaints Genitourinary: no complaints Musculoskeletal: no complaints Exam/Review of Systems Vital Signs Vitals Vital Signs Date Time Temp Pulse Resp B/P Pulse Ox O2 Delivery O2 Flow Rate FiO2 07/21/17 14:00 97.8 20 128/60 96 07/21/17 08:00 90 07/19/17 10:38 Room Air Intake and Output 07/20/17 07/20/17 07/21/17 15:00 23:00 07:00 Intake Total 440 ml 1100 ml 1000 ml Balance 440 ml 1100 ml 1000 ml Exam Constitutional: alert, oriented, well developed Respiratory: clear to auscultation, normal air movement Cardiovascular: nl pulses, regular rate and rhythm Gastrointestinal: soft Musculoskeletal: nl extremities to inspection Extremities: normal pulses Neurological: nl mental status, nl speech Results Result Diagram: 07/21/17 0537 07/21/17 0537 Results 24 hrs Laboratory Tests Test 07/20/17 20:18 07/21/17 05:37 07/21/17 08:38 07/21/17 12:13 Bedside Glucose 145 107 128 White Blood Count 7.7 Red Blood Count 4.83 Hemoglobin 14.6 Hematocrit 43.8 Mean Corpuscular Volume 90.7 Mean Corpuscular Hemoglobin 30.2 Mean Corpuscular Hemoglobin Concent 33.3 Red Cell Distribution Width 15.0 H Platelet Count 170 Mean Platelet Volume 9.6 Neutrophils % 69.3 Lymphocytes % 15.0 Monocytes % 8.6 Eosinophils % 6.1 Basophils % 0.7 Nucleated Red Blood Cells % 0.0 Neutrophils # (Manual) 5.3 Lymphocytes # 1.2 Monocytes # 0.7 Eosinophils # 0.5 Basophils # 0.1 Nucleated Red Blood Cells # 0.0 Sodium Level 138 Potassium Level 4.2 Chloride Level 102 Carbon Dioxide Level 29 Anion Gap 11 Blood Urea Nitrogen 30 H Creatinine 1.53 H Glucose Level 112 Calcium Level 9.5 Test 07/21/17 17:27 Bedside Glucose 118 Medications Medications Current Medications Aspirin (Halfprin) 81 mg DAILY PO Last administered on 07/21/17 08:44; Admin Dose 81 MG; Start 07/20/17 at 09:00 Clonazepam (Klonopin) 0.5 mg QHS PO Last administered on 07/20/17 20:20; Admin Dose 0.5 MG; Start 07/19/17 at 21:00 Clopidogrel Bisulfate (plaVIX) 75 mg DAILY PO Last administered on 07/21/17 08: 44; Admin Dose 75 MG; Start 07/20/17 at 09:00 Rosuvastatin Calcium (Crestor) 40 mg QHS PO Last administered on 07/20/17 20:20 ; Admin Dose 40 MG; Start 07/19/17 at 21:00 Tamsulosin HCl (Flomax) 0.4 mg DAILY PO Last administered on 07/21/17 08:44; Admin Dose 0.4 MG; Start 07/20/17 at 09:00 Pantoprazole (Protonix Tab) 40 mg DAILY@06 PO Last administered on 07/21/17 05: 05; Admin Dose 40 MG; Start 07/20/17 at 06:00 Diagnostic Test (Pha) (Accu-Chek) 1 ea 02 XX ; Start 07/20/17 at 02:00 Linagliptin 5 mg 5 mg DAILY PO Last administered on 07/21/17 08:44; Admin Dose 5 MG; Start 07/19/17 at 13:30 Sodium Chloride (NS) 1,000 ml @ 70 mls/hr [id number] IV Last administered on 11:46; Admin Dose 40 MLS/HR; Start 07/19/17 at 14:00 Miscellaneous Information 1 ea NOTE XX ; Start 07/19/17 at 15:00 Glucose (Glutose) 15 gm Q15M PRN PO DECREASED GLUCOSE; Start 07/19/17 at 15:00 Glucose (Glutose) 22.5 gm Q15M PRN PO DECREASED GLUCOSE; Start 07/19/17 at 15:00 Dextrose (D50w Syringe) 25 ml Q15M PRN IV DECREASED GLUCOSE; Start 07/19/17 at 15:00 Dextrose (D50w Syringe) 50 ml Q15M PRN IV DECREASED GLUCOSE; Start 07/19/17 at 15:00 Glucagon (Glucagen) 1 mg Q15M PRN IM DECREASED GLUCOSE; Start 07/19/17 at 15:00 Glucose (Glutose) 15 gm Q15M PRN BUCCAL DECREASED GLUCOSE; Start 07/19/17 at 15: 00 SARAN LEON Jul 21, 2017 19:41
[2017-07-21] MEDS: ROSUVASTATIN CALCIUM 40 MG TABLET PO SCH (20:29)
[2017-07-21] MEDS: clonAZEPAM 0.5 MG TAB PO SCH (20:29)
[2017-07-21 20:48] VITALS: BP 117/67; RESP 20
[2017-07-22] MEDS: ACCU-CHEK XX SCH (01:08)
[2017-07-22 02:45] VITALS: BP 122/59; RESP 18
[2017-07-22] MEDS: SOD CHLORIDE 0.9% 1,000 ML IV SCH ×2 (05:19→20:11)
[2017-07-22] MEDS: PANTOPRAZOLE (EC) 40 MG TAB PO SCH (05:19)
[2017-07-22 06:44] LABS: BASOPHILS % 0.4 % (0.0-2.0); EOSINOPHILS # 0.4 10^3/ul (0.0-0.5); HEMATOCRIT 42.9 % (42.0-52.0); HEMOGLOBIN 14.8 g/dl (14.0-18.0); LYMPHOCYTES # 0.9 10^3/ul (0.8-2.9); LYMPHOCYTES % 11.7 % (15.0-51.0); MEAN CORPUSCULAR HEMOGLOBIN 31.1 pg (29.0-33.0); MEAN CORPUSCULAR HGB CONC 34.5 g/dl (32.0-37.0); MEAN CORPUSCULAR VOLUME 90.1 fl (82.0-101.0); MEAN PLATELET VOLUME 9.9 fl (7.4-10.4); MONOCYTE # 0.6 10^3/ul (0.3-0.9); MONOCYTES % 8.1 % (0.0-11.0); NEUTROPHILS % 74.5 % (39.0-77.0); PLATELET COUNT 169 10^3/UL (140-415); RED BLOOD COUNT 4.76 10^6/ul (4.70-6.10); RED CELL DISTRIBUTION WIDTH 14.8 % (11.5-14.5); WHITE BLOOD COUNT 7.6 10^3/ul (4.8-10.8)
[2017-07-22 07:03] LABS: CALCIUM 9.2 mg/dl (8.4-10.2); CREATININE 1.31 mg/dl (0.61-1.24); POTASSIUM 4.2 mmol/L (3.5-5.1)
[2017-07-22] MEDS: INSULIN ASPART [NOVOLOG] 3 ML PEN SC SCH ×4 (07:50→20:16)
[2017-07-22] MEDS: TAMSULOSIN (SR) 0.4 MG CAP PO SCH (08:03)
[2017-07-22] MEDS: ASPIRIN (EC) 81 MG TAB PO SCH (08:03)
[2017-07-22] MEDS: CLOPIDOGREL 75 MG TAB PO SCH (08:03)
[2017-07-22] MEDS: LINAGLIPTIN 5 MG TABLET PO SCH (08:03)
[2017-07-22 08:15] VITALS: BP 156/87; RESP 18
--- NOTE | 2017-07-22 13:58 | PN ---
Date/Time of Note Date/Time of Note DATE: 07/22/17 TIME: 13:55 Assessment/Plan VTE Prophylaxis VTE Prophylaxis Intervention: other Lines/Catheters IV Catheter Type (from [facility]): Peripheral IV Urinary Cath still in place: No Assessment/Plan Assessment/Plan - Acute Kidney Injury- Cr 1.31 today - nephrology follows - IVF - bmp AM -Diabetes mellitus -Hypoglycemia secondary to sulfonylurea- RESOLVED -hypertension -peripheral vascular disease -atrial fibrillation (based on admission in 2006, patient is not aware of this diagnosis) - SP Pacemaker Exam/Review of Systems Vital Signs Vitals Vital Signs Date Time Temp Pulse Resp B/P Pulse Ox O2 Delivery O2 Flow Rate FiO2 07/22/17 08:15 98.0 88 18 156/87 94 07/19/17 10:38 Room Air Intake and Output 07/21/17 07/21/17 07/22/17 15:00 23:00 07:00 Intake Total 360 ml 1320 ml 1200 ml Balance 360 ml 1320 ml 1200 ml Exam Constitutional: alert, oriented Respiratory: clear to auscultation, normal air movement Gastrointestinal: soft Musculoskeletal: nl extremities to inspection Extremities: normal pulses Neurological: nl mental status, nl speech Results Result Diagram: 07/22/17 0531 07/22/17 0532 Results 24 hrs Laboratory Tests Test 07/21/17 17:27 07/21/17 20:28 07/22/17 05:31 07/22/17 05:32 Bedside Glucose 118 142 White Blood Count 7.6 Red Blood Count 4.76 Hemoglobin 14.8 Hematocrit 42.9 Mean Corpuscular Volume 90.1 Mean Corpuscular Hemoglobin 31.1 Mean Corpuscular Hemoglobin Concent 34.5 Red Cell Distribution Width 14.8 H Platelet Count 169 Mean Platelet Volume 9.9 Neutrophils % 74.5 Lymphocytes % 11.7 L Monocytes % 8.1 Eosinophils % 5.0 Basophils % 0.4 Nucleated Red Blood Cells % 0.0 Neutrophils # (Manual) 5.7 Lymphocytes # 0.9 Monocytes # 0.6 Eosinophils # 0.4 Basophils # 0.0 Nucleated Red Blood Cells # 0.0 Sodium Level 138 Potassium Level 4.2 Chloride Level 104 Carbon Dioxide Level 25 Anion Gap 13 Blood Urea Nitrogen 28 H Creatinine 1.31 H Glucose Level 113 Calcium Level 9.2 Test 07/22/17 07:49 07/22/17 11:38 07/22/17 12:11 Bedside Glucose 110 160 156 Medications Medications Current Medications Aspirin (Halfprin) 81 mg DAILY PO Last administered on 07/22/17 08:03; Admin Dose 81 MG; Start 07/20/17 at 09:00 Clonazepam (Klonopin) 0.5 mg QHS PO Last administered on 07/21/17 20:29; Admin Dose 0.5 MG; Start 07/19/17 at 21:00 Clopidogrel Bisulfate (plaVIX) 75 mg DAILY PO Last administered on 07/22/17 08 :03; Admin Dose 75 MG; Start 07/20/17 at 09:00 Rosuvastatin Calcium (Crestor) 40 mg QHS PO Last administered on 07/21/17 20:29 ; Admin Dose 40 MG; Start 07/19/17 at 21:00 Tamsulosin HCl (Flomax) 0.4 mg DAILY PO Last administered on 07/22/17 08:03; Admin Dose 0.4 MG; Start 07/20/17 at 09:00 Pantoprazole (Protonix Tab) 40 mg DAILY@06 PO Last administered on 07/22/17 05 :19; Admin Dose 40 MG; Start 07/20/17 at 06:00 Diagnostic Test (Pha) (Accu-Chek) 1 ea 02 XX ; Start 07/20/17 at 02:00 Linagliptin 5 mg 5 mg DAILY PO Last administered on 07/22/17 08:03; Admin Dose 5 MG; Start 07/19/17 at 13:30 Sodium Chloride (NS) 1,000 ml @ 70 mls/hr [id number] IV Last administered on 07/22 05:19; Admin Dose 70 MLS/HR; Start 07/19/17 at 14:00 Miscellaneous Information 1 ea NOTE XX ; Start 07/19/17 at 15:00 Glucose (Glutose) 15 gm Q15M PRN PO DECREASED GLUCOSE; Start 07/19/17 at 15:00 Glucose (Glutose) 22.5 gm Q15M PRN PO DECREASED GLUCOSE; Start 07/19/17 at 15:00 Dextrose (D50w Syringe) 25 ml Q15M PRN IV DECREASED GLUCOSE; Start 07/19/17 at 15:00 Dextrose (D50w Syringe) 50 ml Q15M PRN IV DECREASED GLUCOSE; Start 07/19/17 at 15:00 Glucagon (Glucagen) 1 mg Q15M PRN IM DECREASED GLUCOSE; Start 07/19/17 at 15:00 Glucose (Glutose) 15 gm Q15M PRN BUCCAL DECREASED GLUCOSE; Start 07/19/17 at 15: 00 SARAN LEON Jul 22, 2017 13:58
[2017-07-22 15:00] VITALS: BP 146/72; RESP 18
--- NOTE | 2017-07-22 17:54 | CONS ---
Date/Time of Note Date/Time of Note DATE: 07/22/17 TIME: 17:53 Assessment/Plan Assessment/Plan Chief Complaint/Hosp Course 81-year-old male with PMHx of HTN,who was sent for hypoglycemia. he is noted to have Cr 1.63 and renal has been consulted for ROBINA. Problems: Additional Assessment/Plan 1. Acute kidney injury due to prerenal azotemia 2. Hypoglycemia 3. Diabetes melitus 4. Hypertension 5. Peripheral vascular disease 6. H/o atrial fibrillation 7. H/o Pacemaker placement Plan : Cr improved from 1.53 to 1.31- continue IVF to 70 cc.hr avoid ACEI Conitnue current meds expecting pt creatinine to improve with IVF hydration will follow up. Consultation Date/Type/Reason Admit Date/Time Jul 19, 2017 at 08:18 Initial Consult Date 07/19/17 Type of Consultation: NEPHROLOGY Referring Provider: MICHAEL URBANO MD Exam/Review of Systems Vital Signs Vitals Vital Signs Date Time Temp Pulse Resp B/P Pulse Ox O2 Delivery O2 Flow Rate FiO2 07/22/17 15:00 98.4 81 18 146/72 96 07/19/17 10:38 Room Air Intake and Output 07/21/17 07/21/17 07/22/17 15:00 23:00 07:00 Intake Total 360 ml 1320 ml 1200 ml Balance 360 ml 1320 ml 1200 ml Results Result Diagram: 07/22/17 0531 07/22/17 0532 Results 24 hrs Laboratory Tests Test 07/21/17 20:28 07/22/17 05:31 07/22/17 05:32 07/22/17 07:49 Bedside Glucose 142 110 White Blood Count 7.6 Red Blood Count 4.76 Hemoglobin 14.8 Hematocrit 42.9 Mean Corpuscular Volume 90.1 Mean Corpuscular Hemoglobin 31.1 Mean Corpuscular Hemoglobin Concent 34.5 Red Cell Distribution Width 14.8 H Platelet Count 169 Mean Platelet Volume 9.9 Neutrophils % 74.5 Lymphocytes % 11.7 L Monocytes % 8.1 Eosinophils % 5.0 Basophils % 0.4 Nucleated Red Blood Cells % 0.0 Neutrophils # (Manual) 5.7 Lymphocytes # 0.9 Monocytes # 0.6 Eosinophils # 0.4 Basophils # 0.0 Nucleated Red Blood Cells # 0.0 Sodium Level 138 Potassium Level 4.2 Chloride Level 104 Carbon Dioxide Level 25 Anion Gap 13 Blood Urea Nitrogen 28 H Creatinine 1.31 H Glucose Level 113 Calcium Level 9.2 Test 07/22/17 11:38 07/22/17 12:11 07/22/17 17:38 Bedside Glucose 160 156 105 Medications Medications Current Medications Aspirin (Halfprin) 81 mg DAILY PO Last administered on 07/22/17 08:03; Admin Dose 81 MG; Start 07/20/17 at 09:00 Clonazepam (Klonopin) 0.5 mg QHS PO Last administered on 07/21/17 20:29; Admin Dose 0.5 MG; Start 07/19/17 at 21:00 Clopidogrel Bisulfate (plaVIX) 75 mg DAILY PO Last administered on 07/22/17 08 :03; Admin Dose 75 MG; Start 07/20/17 at 09:00 Rosuvastatin Calcium (Crestor) 40 mg QHS PO Last administered on 07/21/17 20:29 ; Admin Dose 40 MG; Start 07/19/17 at 21:00 Tamsulosin HCl (Flomax) 0.4 mg DAILY PO Last administered on 07/22/17 08:03; Admin Dose 0.4 MG; Start 07/20/17 at 09:00 Pantoprazole (Protonix Tab) 40 mg DAILY@06 PO Last administered on 07/22/17 05 :19; Admin Dose 40 MG; Start 07/20/17 at 06:00 Diagnostic Test (Pha) (Accu-Chek) 1 ea 02 XX ; Start 07/20/17 at 02:00 Linagliptin 5 mg 5 mg DAILY PO Last administered on 07/22/17 08:03; Admin Dose 5 MG; Start 07/19/17 at 13:30 Sodium Chloride (NS) 1,000 ml @ 70 mls/hr [id number] IV Last administered on 07/22 05:19; Admin Dose 70 MLS/HR; Start 07/19/17 at 14:00 Miscellaneous Information 1 ea NOTE XX ; Start 07/19/17 at 15:00 Glucose (Glutose) 15 gm Q15M PRN PO DECREASED GLUCOSE; Start 07/19/17 at 15:00 Glucose (Glutose) 22.5 gm Q15M PRN PO DECREASED GLUCOSE; Start 9/7/17 at 15:00 Dextrose (D50w Syringe) 25 ml Q15M PRN IV DECREASED GLUCOSE; Start 07/19/17 at 15:00 Dextrose (D50w Syringe) 50 ml Q15M PRN IV DECREASED GLUCOSE; Start 07/19/17 at 15:00 Glucagon (Glucagen) 1 mg Q15M PRN IM DECREASED GLUCOSE; Start 07/19/17 at 15:00 Glucose (Glutose) 15 gm Q15M PRN BUCCAL DECREASED GLUCOSE; Start 07/19/17 at 15: 00 JAUN LUEVANO MD Jul 22, 2017 17:54
[2017-07-22 20:05] VITALS: BP 138/81; RESP 21
[2017-07-22] MEDS: clonAZEPAM 0.5 MG TAB PO SCH (20:12)
[2017-07-22] MEDS: ROSUVASTATIN CALCIUM 40 MG TABLET PO SCH (20:12)
[2017-07-23] MEDS: ACCU-CHEK XX SCH ×2 (02:10→21:31)
[2017-07-23 02:28] VITALS: BP 127/68; RESP 18
[2017-07-23] MEDS: PANTOPRAZOLE (EC) 40 MG TAB PO SCH (05:00)
[2017-07-23 08:00] VITALS: BP 124/72; RESP 20
[2017-07-23] MEDS: CLOPIDOGREL 75 MG TAB PO SCH (09:01)
[2017-07-23] MEDS: LINAGLIPTIN 5 MG TABLET PO SCH (09:01)
[2017-07-23] MEDS: INSULIN ASPART [NOVOLOG] 3 ML PEN SC SCH ×4 (09:01→21:00)
[2017-07-23] MEDS: TAMSULOSIN (SR) 0.4 MG CAP PO SCH (09:01)
[2017-07-23] MEDS: ASPIRIN (EC) 81 MG TAB PO SCH (09:01)
[2017-07-23] MEDS: SOD CHLORIDE 0.9% 1,000 ML IV SCH ×2 (09:10→12:03)
[2017-07-23 14:00] VITALS: BP 110/67; RESP 20
--- NOTE | 2017-07-23 16:42 | CONS ---
Date/Time of Note Date/Time of Note DATE: 07/23/17 TIME: 16:41 Assessment/Plan Assessment/Plan Additional Assessment/Plan 1. Acute kidney injury due to prerenal azotemia 2. Hypoglycemia 3. Diabetes melitus 4. Hypertension 5. Peripheral vascular disease 6. H/o atrial fibrillation 7. H/o Pacemaker placement Plan : Cr improved from 1.53 to 1.31- continue IVF to 70 cc.hr , no labs today to review yet avoid ACEI Conitnue current meds expecting pt creatinine to improve with IVF hydration will follow up. Consultation Date/Type/Reason Admit Date/Time Jul 19, 2017 at 08:18 Initial Consult Date 07/19/17 Type of Consultation: NEPHROLOGY Referring Provider: MICHAEL URBANO MD Exam/Review of Systems Vital Signs Vitals Vital Signs Date Time Temp Pulse Resp B/P Pulse Ox O2 Delivery O2 Flow Rate FiO2 07/23/17 08:00 98.3 84 20 124/72 97 07/19/17 10:38 Room Air Intake and Output 07/22/17 07/22/17 07/23/17 15:00 23:00 07:00 Intake Total 1880 ml 1230 ml Balance 1880 ml 1230 ml Exam Constitutional: alert Respiratory: clear to auscultation, diminished breath sounds, normal air movement Cardiovascular: nl pulses, regular rate and rhythm Gastrointestinal: nl liver, spleen, non-tender, soft Musculoskeletal: nl extremities to inspection, nl gait and stance Extremities: normal pulses Neurological: FLAT HAMMERER II-XII intact Results Result Diagram: 07/22/17 0531 07/22/17 0532 Results 24 hrs Laboratory Tests Test 07/22/17 17:38 07/22/17 20:15 07/23/17 02:08 07/23/17 08:41 Bedside Glucose 105 192 165 265 H Test 07/23/17 12:06 Bedside Glucose 123 Medications Medications Current Medications Aspirin (Halfprin) 81 mg DAILY PO Last administered on 07/23/17 09:01; Admin Dose 81 MG; Start 07/20/17 at 09:00 Clonazepam (Klonopin) 0.5 mg QHS PO Last administered on 07/22/17 20:12; Admin Dose 0.5 MG; Start 07/19/17 at 21:00 Clopidogrel Bisulfate (plaVIX) 75 mg DAILY PO Last administered on 07/23/17 09 :01; Admin Dose 75 MG; Start 07/20/17 at 09:00 Rosuvastatin Calcium (Crestor) 40 mg QHS PO Last administered on 07/22/17 20: 12; Admin Dose 40 MG; Start 07/19/17 at 21:00 Tamsulosin HCl (Flomax) 0.4 mg DAILY PO Last administered on 07/23/17 09:01; Admin Dose 0.4 MG; Start 07/20/17 at 09:00 Pantoprazole (Protonix Tab) 40 mg DAILY@06 PO Last administered on 07/23/17 05 :00; Admin Dose 40 MG; Start 07/20/17 at 06:00 Diagnostic Test (Pha) (Accu-Chek) 1 ea 02 XX Last administered on 07/23/17 02: 10; Admin Dose 1 EA; Start 07/20/17 at 02:00 Linagliptin 5 mg 5 mg DAILY PO Last administered on 07/23/17 09:01; Admin Dose 5 MG; Start 07/19/17 at 13:30 Sodium Chloride (NS) 1,000 ml @ 70 mls/hr [id number] IV Last administered on 07/23 12:03; Admin Dose 70 MLS/HR; Start 07/19/17 at 14:00 Miscellaneous Information 1 ea NOTE XX ; Start 07/19/17 at 15:00 Glucose (Glutose) 15 gm Q15M PRN PO DECREASED GLUCOSE; Start 07/19/17 at 15:00 Glucose (Glutose) 22.5 gm Q15M PRN PO DECREASED GLUCOSE; Start 07/19/17 at 15:00 Dextrose (D50w Syringe) 25 ml Q15M PRN IV DECREASED GLUCOSE; Start 07/19/17 at 15:00 Dextrose (D50w Syringe) 50 ml Q15M PRN IV DECREASED GLUCOSE; Start 07/19/17 at 15:00 Glucagon (Glucagen) 1 mg Q15M PRN IM DECREASED GLUCOSE; Start 07/19/17 at 15:00 Glucose (Glutose) 15 gm Q15M PRN BUCCAL DECREASED GLUCOSE; Start 07/19/17 at 15: 00 JAUN LUEVANO MD Jul 23, 2017 16:42
[2017-07-23 16:43] LABS: BASOPHILS % 0.5 % (0.0-2.0); EOSINOPHILS # 0.3 10^3/ul (0.0-0.5); HEMATOCRIT 42.7 % (42.0-52.0); HEMOGLOBIN 14.1 g/dl (14.0-18.0); LYMPHOCYTES # 0.9 10^3/ul (0.8-2.9); LYMPHOCYTES % 14.6 % (15.0-51.0); MEAN CORPUSCULAR HEMOGLOBIN 30.6 pg (29.0-33.0); MEAN CORPUSCULAR VOLUME 92.6 fl (82.0-101.0); MEAN PLATELET VOLUME 9.2 fl (7.4-10.4); MONOCYTE # 0.6 10^3/ul (0.3-0.9); MONOCYTES % 9.6 % (0.0-11.0); NEUTROPHILS % 70.8 % (39.0-77.0); PLATELET COUNT 167 10^3/UL (140-415); RED BLOOD COUNT 4.61 10^6/ul (4.70-6.10); RED CELL DISTRIBUTION WIDTH 15.2 % (11.5-14.5); WHITE BLOOD COUNT 6.4 10^3/ul (4.8-10.8)
[2017-07-23 17:07] LABS: CREATININE 1.45 mg/dl (0.61-1.24); POTASSIUM 5.3 mmol/L (3.5-5.1)
--- NOTE | 2017-07-23 17:48 | PN ---
Date/Time of Note Date/Time of Note DATE: 07/23/17 TIME: 17:44 Assessment/Plan VTE Prophylaxis VTE Prophylaxis Intervention: other Lines/Catheters IV Catheter Type (from [facility]): Peripheral IV Urinary Cath still in place: No Assessment/Plan Assessment/Plan - Acute Kidney Injury- Cr 1.45 today - nephrology follows - IVF - bmp AM - Hyperkalemia- K 5.3 - Kayexalate 15 gm po x1. BMP am -Diabetes mellitus -Hypoglycemia secondary to sulfonylurea- RESOLVED -hypertension -peripheral vascular disease -atrial fibrillation (based on admission in 2006, patient is not aware of this diagnosis) - SP Pacemaker Subjective 24 Hr Interval Summary Free Text/Dictation Cr 1.45 today, nephrology follows, Hyperkalemia- K 5.3- Kayexalate 15 gm po x1. BMP am . dw staff. Respiratory: no complaints Cardiovascular: no complaints Gastrointestinal: no complaints Genitourinary: no complaints Musculoskeletal: no complaints Exam/Review of Systems Vital Signs Vitals Vital Signs Date Time Temp Pulse Resp B/P Pulse Ox O2 Delivery O2 Flow Rate FiO2 07/23/17 08:00 98.3 84 20 124/72 97 07/19/17 10:38 Room Air Intake and Output 07/22/17 07/22/17 07/23/17 15:00 23:00 07:00 Intake Total 1880 ml 1230 ml Balance 1880 ml 1230 ml Exam Constitutional: alert, oriented, well developed Respiratory: clear to auscultation, normal air movement Cardiovascular: nl pulses, regular rate and rhythm Gastrointestinal: non-tender, soft Musculoskeletal: nl extremities to inspection Extremities: normal pulses Neurological: nl mental status, nl speech Results Result Diagram: 07/23/17 1635 07/23/17 1629 Results 24 hrs Laboratory Tests Test 07/22/17 20:15 07/23/17 02:08 07/23/17 08:41 07/23/17 12:06 Bedside Glucose 192 165 265 H 123 Test 07/23/17 16:29 07/23/17 16:35 Sodium Level 137 Potassium Level 5.3 H Chloride Level 103 Carbon Dioxide Level 28 Anion Gap 11 Blood Urea Nitrogen 26 H Creatinine 1.45 H Glucose Level 106 Calcium Level 9.0 White Blood Count 6.4 Red Blood Count 4.61 L Hemoglobin 14.1 Hematocrit 42.7 Mean Corpuscular Volume 92.6 Mean Corpuscular Hemoglobin 30.6 Mean Corpuscular Hemoglobin Concent 33.0 Red Cell Distribution Width 15.2 H Platelet Count 167 Mean Platelet Volume 9.2 Neutrophils % 70.8 Lymphocytes % 14.6 L Monocytes % 9.6 Eosinophils % 4.0 Basophils % 0.5 Nucleated Red Blood Cells % 0.0 Neutrophils # (Manual) 4.6 Lymphocytes # 0.9 Monocytes # 0.6 Eosinophils # 0.3 Basophils # 0.0 Nucleated Red Blood Cells # 0.0 Medications Medications Current Medications Aspirin (Halfprin) 81 mg DAILY PO Last administered on 07/23/17 09:01; Admin Dose 81 MG; Start 07/20/17 at 09:00 Clonazepam (Klonopin) 0.5 mg QHS PO Last administered on 07/22/17 20:12; Admin Dose 0.5 MG; Start 07/19/17 at 21:00 Clopidogrel Bisulfate (plaVIX) 75 mg DAILY PO Last administered on 07/23/17 09 :01; Admin Dose 75 MG; Start 07/20/17 at 09:00 Rosuvastatin Calcium (Crestor) 40 mg QHS PO Last administered on 07/22/17 20: 12; Admin Dose 40 MG; Start 07/19/17 at 21:00 Tamsulosin HCl (Flomax) 0.4 mg DAILY PO Last administered on 07/23/17 09:01; Admin Dose 0.4 MG; Start 07/20/17 at 09:00 Pantoprazole (Protonix Tab) 40 mg DAILY@06 PO Last administered on 07/23/17 05 :00; Admin Dose 40 MG; Start 07/20/17 at 06:00 Diagnostic Test (Pha) (Accu-Chek) 1 ea 02 XX Last administered on 07/23/17 02: 10; Admin Dose 1 EA; Start 07/20/17 at 02:00 Linagliptin 5 mg 5 mg DAILY PO Last administered on 07/23/17 09:01; Admin Dose 5 MG; Start 07/19/17 at 13:30 Sodium Chloride (NS) 1,000 ml @ 70 mls/hr [id number] IV Last administered on 07/23 12:03; Admin Dose 70 MLS/HR; Start 07/19/17 at 14:00 Miscellaneous Information 1 ea NOTE XX ; Start 07/19/17 at 15:00 Glucose (Glutose) 15 gm Q15M PRN PO DECREASED GLUCOSE; Start 07/19/17 at 15:00 Glucose (Glutose) 22.5 gm Q15M PRN PO DECREASED GLUCOSE; Start 07/19/17 at 15:00 Dextrose (D50w Syringe) 25 ml Q15M PRN IV DECREASED GLUCOSE; Start 07/19/17 at 15:00 Dextrose (D50w Syringe) 50 ml Q15M PRN IV DECREASED GLUCOSE; Start 07/19/17 at 15:00 Glucagon (Glucagen) 1 mg Q15M PRN IM DECREASED GLUCOSE; Start 07/19/17 at 15:00 Glucose (Glutose) 15 gm Q15M PRN BUCCAL DECREASED GLUCOSE; Start 07/19/17 at 15: 00 SARAN LEON Jul 23, 2017 17:48
[2017-07-23 20:38] VITALS: BP 131/77; RESP 18
[2017-07-23] MEDS: clonAZEPAM 0.5 MG TAB PO SCH (21:27)
[2017-07-23] MEDS: ROSUVASTATIN CALCIUM 40 MG TABLET PO SCH (21:27)
[2017-07-24 03:09] VITALS: BP 108/55; RESP 16
[2017-07-24] MEDS ORDERED: NA POLYST SULFON 15 GM/60 ML BTL PO ONE (04:00)
[2017-07-24] MEDS: SOD CHLORIDE 0.9% 1,000 ML IV SCH ×2 (04:50→16:57)
[2017-07-24] MEDS: PANTOPRAZOLE (EC) 40 MG TAB PO SCH (05:00)
[2017-07-24 06:02] LABS: BASOPHILS % 0.3 % (0.0-2.0); EOSINOPHILS # 0.3 10^3/ul (0.0-0.5); EOSINOPHILS % 4.4 % (0.0-7.0); HEMATOCRIT 42.7 % (42.0-52.0); HEMOGLOBIN 14.2 g/dl (14.0-18.0); LYMPHOCYTES # 0.9 10^3/ul (0.8-2.9); LYMPHOCYTES % 13.8 % (15.0-51.0); MEAN CORPUSCULAR HEMOGLOBIN 30.1 pg (29.0-33.0); MEAN CORPUSCULAR HGB CONC 33.3 g/dl (32.0-37.0); MEAN CORPUSCULAR VOLUME 90.5 fl (82.0-101.0); MONOCYTE # 0.6 10^3/ul (0.3-0.9); MONOCYTES % 9.2 % (0.0-11.0); NEUTROPHILS % 72.1 % (39.0-77.0); PLATELET COUNT 170 10^3/UL (140-415); RED BLOOD COUNT 4.72 10^6/ul (4.70-6.10); RED CELL DISTRIBUTION WIDTH 15.2 % (11.5-14.5); WHITE BLOOD COUNT 6.5 10^3/ul (4.8-10.8)
[2017-07-24 06:23] LABS: CALCIUM 9.2 mg/dl (8.4-10.2); CREATININE 1.27 mg/dl (0.61-1.24)
--- NOTE | 2017-07-24 06:30 | RADRPT ---
PROCEDURE: US Renal CLINICAL INDICATION: Elevated creatinine TECHNIQUE: Multiple sonographic images of the kidneys and bladder were obtained. Evaluation of th e kidneys and bladder was performed as well with ware scale and color and Doppler evaluation using a curved array transducer. The images were reviewed on a high-resolution PACS workstation. COMPARISON: No prior studies are available for comparison. FINDINGS: The right kidney measures 7.7 cm in length. The left kidney measures 9.4 cm in length. The renal par enchyma demonstrates increased echogenicity. There is no mass, calculus, or obstructive uropathy. N o perinephric fluid collection is seen. The bladder is under distended, but otherwise unremarkable. IMPRESSION: Small, echogenic kidneys, consistent with medical renal disease. RPTAT: HH .Porsha Maldonado MD, Date Time Electronically viewed and signed by .Porsha Maldonado MD, on 07/24/2017 06:29 .G/
[2017-07-24] MEDS: INSULIN ASPART [NOVOLOG] 3 ML PEN SC SCH ×4 (08:00→20:57)
[2017-07-24 08:02] VITALS: BP 152/71; RESP 16
[2017-07-24] MEDS: ASPIRIN (EC) 81 MG TAB PO SCH (08:57)
[2017-07-24] MEDS: CLOPIDOGREL 75 MG TAB PO SCH (08:57)
[2017-07-24] MEDS: LINAGLIPTIN 5 MG TABLET PO SCH (08:57)
[2017-07-24] MEDS: TAMSULOSIN (SR) 0.4 MG CAP PO SCH (08:57)
--- NOTE | 2017-07-24 09:02 | CONS ---
Date/Time of Note Date/Time of Note DATE: 07/24/17 TIME: 09:00 Assessment/Plan Assessment/Plan Additional Assessment/Plan 1. Acute kidney injury due to prerenal azotemia 2. Hypoglycemia 3. Diabetes melitus 4. Hypertension 5. Peripheral vascular disease 6. H/o atrial fibrillation 7. H/o Pacemaker placement 8. Hyperkalemia s/p kayexalate on 07/23/17 Plan : Cr improved from 1.53 to 1.27- continue IVF to 70 cc.hr- will d/c IVF tomorrow AM kayexalate given yesterday, today K normal avoid ACEI due to hyperkalemia Conitnue current meds expecting pt creatinine to improve with IVF hydration will follow up Consultation Date/Type/Reason Admit Date/Time Jul 19, 2017 at 08:18 Initial Consult Date 07/19/17 Type of Consultation: NEPHROLOGY Referring Provider: MICHAEL URBANO MD 24 HR Interval Summary Free Text/Dictation pt received kayexalae yesterday, K normal today, BP stable, afebrile Exam/Review of Systems Vital Signs Vitals Vital Signs Date Time Temp Pulse Resp B/P Pulse Ox O2 Delivery O2 Flow Rate FiO2 07/24/17 08:02 97.6 87 16 152/71 97 Intake and Output 07/23/17 07/23/17 07/24/17 15:00 23:00 07:00 Intake Total 630 ml 1610 ml 1260 ml Balance 630 ml 1610 ml 1260 ml Exam Constitutional: alert Respiratory: clear to auscultation, diminished breath sounds, normal air movement Cardiovascular: nl pulses, regular rate and rhythm Gastrointestinal: nl liver, spleen, non-tender, soft Musculoskeletal: nl extremities to inspection, nl gait and stance Extremities: normal pulses Neurological: 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 Results Result Diagram: 07/24/17 0516 07/24/17 0518 Results 24 hrs Laboratory Tests Test 07/23/17 12:06 07/23/17 16:29 07/23/17 16:35 07/23/17 17:45 Bedside Glucose 123 113 Sodium Level 137 Potassium Level 5.3 H Chloride Level 103 Carbon Dioxide Level 28 Anion Gap 11 Blood Urea Nitrogen 26 H Creatinine 1.45 H Glucose Level 106 Calcium Level 9.0 White Blood Count 6.4 Red Blood Count 4.61 L Hemoglobin 14.1 Hematocrit 42.7 Mean Corpuscular Volume 92.6 Mean Corpuscular Hemoglobin 30.6 Mean Corpuscular Hemoglobin Concent 33.0 Red Cell Distribution Width 15.2 H Platelet Count 167 Mean Platelet Volume 9.2 Neutrophils % 70.8 Lymphocytes % 14.6 L Monocytes % 9.6 Eosinophils % 4.0 Basophils % 0.5 Nucleated Red Blood Cells % 0.0 Neutrophils # (Manual) 4.6 Lymphocytes # 0.9 Monocytes # 0.6 Eosinophils # 0.3 Basophils # 0.0 Nucleated Red Blood Cells # 0.0 Test 07/23/17 21:28 07/24/17 05:16 07/24/17 05:18 07/24/17 08:06 Bedside Glucose 132 103 White Blood Count 6.5 Red Blood Count 4.72 Hemoglobin 14.2 Hematocrit 42.7 Mean Corpuscular Volume 90.5 Mean Corpuscular Hemoglobin 30.1 Mean Corpuscular Hemoglobin Concent 33.3 Red Cell Distribution Width 15.2 H Platelet Count 170 Mean Platelet Volume 10.0 Neutrophils % 72.1 Lymphocytes % 13.8 L Monocytes % 9.2 Eosinophils % 4.4 Basophils % 0.3 Nucleated Red Blood Cells % 0.0 Neutrophils # (Manual) 4.7 Lymphocytes # 0.9 Monocytes # 0.6 Eosinophils # 0.3 Basophils # 0.0 Nucleated Red Blood Cells # 0.0 Sodium Level 137 Potassium Level 4.0 Chloride Level 106 Carbon Dioxide Level 24 Anion Gap 11 Blood Urea Nitrogen 29 H Creatinine 1.27 H Glucose Level 108 Calcium Level 9.2 Medications Medications Current Medications Aspirin (Halfprin) 81 mg DAILY PO Last administered on 07/24/17 08:57; Admin Dose 81 MG; Start 07/20/17 at 09:00 Clonazepam (Klonopin) 0.5 mg QHS PO Last administered on 07/23/17 21:27; Admin Dose 0.5 MG; Start 07/19/17 at 21:00 Clopidogrel Bisulfate (plaVIX) 75 mg DAILY PO Last administered on 07/24/17 08 :57; Admin Dose 75 MG; Start 07/20/17 at 09:00 Rosuvastatin Calcium (Crestor) 40 mg QHS PO Last administered on 07/23/17 21: 27; Admin Dose 40 MG; Start 07/19/17 at 21:00 Tamsulosin HCl (Flomax) 0.4 mg DAILY PO Last administered on 07/24/17 08:57; Admin Dose 0.4 MG; Start 07/20/17 at 09:00 Pantoprazole (Protonix Tab) 40 mg DAILY@06 PO Last administered on 07/24/17 05 :00; Admin Dose 40 MG; Start 07/20/17 at 06:00 Diagnostic Test (Pha) (Accu-Chek) 1 ea 02 XX Last administered on 07/23/17 02: 10; Admin Dose 1 EA; Start 07/20/17 at 02:00 Linagliptin 5 mg 5 mg DAILY PO Last administered on 07/24/17 08:57; Admin Dose 5 MG; Start 07/19/17 at 13:30 Sodium Chloride (NS) 1,000 ml @ 70 mls/hr [id number] IV Last administered on 07/24 04:50; Admin Dose 70 MLS/HR; Start 07/19/17 at 14:00 Miscellaneous Information 1 ea NOTE XX ; Start 07/19/17 at 15:00 Glucose (Glutose) 15 gm Q15M PRN PO DECREASED GLUCOSE; Start 07/19/17 at 15:00 Glucose (Glutose) 22.5 gm Q15M PRN PO DECREASED GLUCOSE; Start 07/19/17 at 15:00 Dextrose (D50w Syringe) 25 ml Q15M PRN IV DECREASED GLUCOSE; Start 07/19/17 at 15:00 Dextrose (D50w Syringe) 50 ml Q15M PRN IV DECREASED GLUCOSE; Start 07/19/17 at 15:00 Glucagon (Glucagen) 1 mg Q15M PRN IM DECREASED GLUCOSE; Start 07/19/17 at 15:00 Glucose (Glutose) 15 gm Q15M PRN BUCCAL DECREASED GLUCOSE; Start 07/19/17 at 15: 00 JAUN LUEVANO MD Jul 24, 2017 09:02
--- NOTE | 2017-07-24 10:22 | PN ---
Date/Time of Note Date/Time of Note DATE: 07/24/17 TIME: 10:20 Assessment/Plan VTE Prophylaxis VTE Prophylaxis Intervention: other Lines/Catheters [facility] Peripheral IV Urinary Cath still in place: No Assessment/Plan Assessment/Plan - Acute Kidney Injury- Cr 1.27 today.US Renal- Small, echogenic kidneys, consistent with medical renal disease. - nephrology follows - IVF - bmp AM - Hyperkalemia- K 5.3 - Kayexalate 15 gm po x1. BMP am -Diabetes mellitus -Hypoglycemia secondary to sulfonylurea- RESOLVED -hypertension -peripheral vascular disease -atrial fibrillation (based on admission in 2006, patient is not aware of this diagnosis) - SP Pacemaker Subjective 24 Hr Interval Summary Respiratory: no complaints Cardiovascular: no complaints Gastrointestinal: no complaints Genitourinary: no complaints Musculoskeletal: no complaints Skin: no complaints Exam/Review of Systems Vital Signs Vitals Vital Signs Date Time Temp Pulse Resp B/P Pulse Ox O2 Delivery O2 Flow Rate FiO2 07/24/17 08:02 97.6 87 16 152/71 97 Intake and Output 07/23/17 07/23/17 07/24/17 15:00 23:00 07:00 Intake Total 630 ml 1610 ml 1260 ml Balance 630 ml 1610 ml 1260 ml Exam Constitutional: alert, oriented, well developed Respiratory: clear to auscultation, normal air movement Cardiovascular: nl pulses, regular rate and rhythm Gastrointestinal: non-tender, soft Musculoskeletal: nl extremities to inspection Extremities: normal pulses Neurological: nl mental status, nl speech Results Result Diagram: 07/24/17 0516 07/24/17 0518 Results 24 hrs Laboratory Tests Test 07/23/17 12:06 07/23/17 16:29 07/23/17 16:35 07/23/17 17:45 Bedside Glucose 123 113 Sodium Level 137 Potassium Level 5.3 H Chloride Level 103 Carbon Dioxide Level 28 Anion Gap 11 Blood Urea Nitrogen 26 H Creatinine 1.45 H Glucose Level 106 Calcium Level 9.0 White Blood Count 6.4 Red Blood Count 4.61 L Hemoglobin 14.1 Hematocrit 42.7 Mean Corpuscular Volume 92.6 Mean Corpuscular Hemoglobin 30.6 Mean Corpuscular Hemoglobin Concent 33.0 Red Cell Distribution Width 15.2 H Platelet Count 167 Mean Platelet Volume 9.2 Neutrophils % 70.8 Lymphocytes % 14.6 L Monocytes % 9.6 Eosinophils % 4.0 Basophils % 0.5 Nucleated Red Blood Cells % 0.0 Neutrophils # (Manual) 4.6 Lymphocytes # 0.9 Monocytes # 0.6 Eosinophils # 0.3 Basophils # 0.0 Nucleated Red Blood Cells # 0.0 Test 07/23/17 21:28 07/24/17 05:16 07/24/17 05:18 07/24/17 08:06 Bedside Glucose 132 103 White Blood Count 6.5 Red Blood Count 4.72 Hemoglobin 14.2 Hematocrit 42.7 Mean Corpuscular Volume 90.5 Mean Corpuscular Hemoglobin 30.1 Mean Corpuscular Hemoglobin Concent 33.3 Red Cell Distribution Width 15.2 H Platelet Count 170 Mean Platelet Volume 10.0 Neutrophils % 72.1 Lymphocytes % 13.8 L Monocytes % 9.2 Eosinophils % 4.4 Basophils % 0.3 Nucleated Red Blood Cells % 0.0 Neutrophils # (Manual) 4.7 Lymphocytes # 0.9 Monocytes # 0.6 Eosinophils # 0.3 Basophils # 0.0 Nucleated Red Blood Cells # 0.0 Sodium Level 137 Potassium Level 4.0 Chloride Level 106 Carbon Dioxide Level 24 Anion Gap 11 Blood Urea Nitrogen 29 H Creatinine 1.27 H Glucose Level 108 Calcium Level 9.2 Medications Medications Current Medications Aspirin (Halfprin) 81 mg DAILY PO Last administered on 07/24/17 08:57; Admin Dose 81 MG; Start 07/20/17 at 09:00 Clonazepam (Klonopin) 0.5 mg QHS PO Last administered on 07/23/17 21:27; Admin Dose 0.5 MG; Start 07/19/17 at 21:00 Clopidogrel Bisulfate (plaVIX) 75 mg DAILY PO Last administered on 07/24/17 08 :57; Admin Dose 75 MG; Start 07/20/17 at 09:00 Rosuvastatin Calcium (Crestor) 40 mg QHS PO Last administered on 07/23/17 21: 27; Admin Dose 40 MG; Start 07/19/17 at 21:00 Tamsulosin HCl (Flomax) 0.4 mg DAILY PO Last administered on 07/24/17 08:57; Admin Dose 0.4 MG; Start 07/20/17 at 09:00 Pantoprazole (Protonix Tab) 40 mg DAILY@06 PO Last administered on 07/24/17 05 :00; Admin Dose 40 MG; Start 07/20/17 at 06:00 Diagnostic Test (Pha) (Accu-Chek) 1 ea 02 XX Last administered on 07/23/17 02: 10; Admin Dose 1 EA; Start 07/20/17 at 02:00 Linagliptin 5 mg 5 mg DAILY PO Last administered on 07/24/17 08:57; Admin Dose 5 MG; Start 07/19/17 at 13:30 Sodium Chloride (NS) 1,000 ml @ 70 mls/hr [id number] IV Last administered on 07/24 04:50; Admin Dose 70 MLS/HR; Start 07/19/17 at 14:00 Miscellaneous Information 1 ea NOTE XX ; Start 07/19/17 at 15:00 Glucose (Glutose) 15 gm Q15M PRN PO DECREASED GLUCOSE; Start 07/19/17 at 15:00 Glucose (Glutose) 22.5 gm Q15M PRN PO DECREASED GLUCOSE; Start 07/19/17 at 15:00 Dextrose (D50w Syringe) 25 ml Q15M PRN IV DECREASED GLUCOSE; Start 07/19/17 at 15:00 Dextrose (D50w Syringe) 50 ml Q15M PRN IV DECREASED GLUCOSE; Start 07/19/17 at 15:00 Glucagon (Glucagen) 1 mg Q15M PRN IM DECREASED GLUCOSE; Start 07/19/17 at 15:00 Glucose (Glutose) 15 gm Q15M PRN BUCCAL DECREASED GLUCOSE; Start 07/19/17 at 15: 00 SARAN LEON Jul 24, 2017 10:22
[2017-07-24 14:01] VITALS: BP 122/62; RESP 18
[2017-07-24 19:30] VITALS: BP 135/76; RESP 16
[2017-07-24] MEDS: clonAZEPAM 0.5 MG TAB PO SCH (20:59)
[2017-07-24] MEDS: ROSUVASTATIN CALCIUM 40 MG TABLET PO SCH (20:59)
[2017-07-25] MEDS: ACCU-CHEK XX SCH (01:52)
[2017-07-25 02:31] VITALS: BP 141/63; RESP 22
[2017-07-25] MEDS: PANTOPRAZOLE (EC) 40 MG TAB PO SCH (05:30)
[2017-07-25 05:32] LABS: BASOPHILS % 0.3 % (0.0-2.0); EOSINOPHILS # 0.3 10^3/ul (0.0-0.5); EOSINOPHILS % 4.4 % (0.0-7.0); HEMATOCRIT 40.6 % (42.0-52.0); HEMOGLOBIN 13.7 g/dl (14.0-18.0); LYMPHOCYTES # 0.9 10^3/ul (0.8-2.9); LYMPHOCYTES % 13.3 % (15.0-51.0); MEAN CORPUSCULAR HEMOGLOBIN 30.8 pg (29.0-33.0); MEAN CORPUSCULAR HGB CONC 33.7 g/dl (32.0-37.0); MEAN CORPUSCULAR VOLUME 91.2 fl (82.0-101.0); MEAN PLATELET VOLUME 9.9 fl (7.4-10.4); MONOCYTE # 0.6 10^3/ul (0.3-0.9); MONOCYTES % 9.2 % (0.0-11.0); NEUTROPHILS % 72.5 % (39.0-77.0); PLATELET COUNT 167 10^3/UL (140-415); RED BLOOD COUNT 4.45 10^6/ul (4.70-6.10); RED CELL DISTRIBUTION WIDTH 15.1 % (11.5-14.5); WHITE BLOOD COUNT 6.6 10^3/ul (4.8-10.8)
[2017-07-25 05:50] LABS: CALCIUM 8.7 mg/dl (8.4-10.2); CREATININE 1.22 mg/dl (0.61-1.24); POTASSIUM 3.7 mmol/L (3.5-5.1)
[2017-07-25] MEDS: INSULIN ASPART [NOVOLOG] 3 ML PEN SC SCH ×2 (07:54→12:00)
[2017-07-25] MEDS: SOD CHLORIDE 0.9% 1,000 ML IV SCH (07:55)
[2017-07-25 07:58] VITALS: BP 168/83; RESP 16
[2017-07-25] MEDS: CLOPIDOGREL 75 MG TAB PO SCH (08:57)
[2017-07-25] MEDS: TAMSULOSIN (SR) 0.4 MG CAP PO SCH (08:57)
[2017-07-25] MEDS: ASPIRIN (EC) 81 MG TAB PO SCH (08:57)
[2017-07-25] MEDS: LINAGLIPTIN 5 MG TABLET PO SCH (08:57)
--- NOTE | 2017-07-25 12:26 | PDOCDIS ---
Discharge Instructions CONDITION Patient Condition: Stable HOME CARE INSTRUCTIONS: Special Diet: 1800 prachi, 2g Na ACTIVITY: Activity Restrictions: Slowly Increase Activity Rest between Activity Avoid heavy lifting Do not Drive Do not operate Machinery Do not operate Power Tool Avoid Heavy Housework FOLLOW UP/APPOINTMENTS Follow-up Plan FU with primary MD x 1 week Fu with Nephrology as recommended. Call 911 or go to the the nearest hospital is symptoms got worse.Patient verbalized understanding dc instructions. Dw Dr López/staff SARAN LEON Jul 25, 2017 12:26
[2017-07-25] MEDS ORDERED: LINA5TAB PO (12:27)
--- NOTE | 2017-07-25 20:14 | CONS ---
Date/Time of Note Date/Time of Note DATE: 07/25/17 TIME: 20:09 Assessment/Plan Assessment/Plan Additional Assessment/Plan 1. Acute kidney injury due to prerenal azotemia 2. Hypoglycemia 3. Diabetes melitus 4. Hypertension 5. Peripheral vascular disease 6. H/o atrial fibrillation 7. H/o Pacemaker placement 8. Hyperkalemia s/p kayexalate on 07/23/17 Plan : Cr improved to 1.22- possible d/c home today K normal after kayexalate avoid ACEI due to hyperkalemia Conitnue current meds expecting pt creatinine to improve with IVF hydration will follow up Consultation Date/Type/Reason Admit Date/Time Jul 19, 2017 at 08:18 Initial Consult Date 07/19/17 Type of Consultation: NEPHROLOGY Referring Provider: MICHAEL URBANO MD 24 HR Interval Summary Free Text/Dictation pt was seen in AM< BP stable. Exam/Review of Systems Vital Signs Vitals Vital Signs Date Time Temp Pulse Resp B/P Pulse Ox O2 Delivery O2 Flow Rate FiO2 07/25/17 07:58 98.5 85 16 168/83 98 Intake and Output 07/24/17 07/24/17 07/25/17 15:00 23:00 07:00 Intake Total 2330 ml 1440 ml Balance 2330 ml 1440 ml Results Result Diagram: 07/25/17 0501 07/25/17 0501 Results 24 hrs Laboratory Tests Test 07/24/17 20:56 07/25/17 05:01 07/25/17 07:53 07/25/17 12:26 Bedside Glucose 127 117 123 White Blood Count 6.6 Red Blood Count 4.45 L Hemoglobin 13.7 L Hematocrit 40.6 L Mean Corpuscular Volume 91.2 Mean Corpuscular Hemoglobin 30.8 Mean Corpuscular Hemoglobin Concent 33.7 Red Cell Distribution Width 15.1 H Platelet Count 167 Mean Platelet Volume 9.9 Neutrophils % 72.5 Lymphocytes % 13.3 L Monocytes % 9.2 Eosinophils % 4.4 Basophils % 0.3 Nucleated Red Blood Cells % 0.0 Neutrophils # (Manual) 4.8 Lymphocytes # 0.9 Monocytes # 0.6 Eosinophils # 0.3 Basophils # 0.0 Nucleated Red Blood Cells # 0.0 Sodium Level 138 Potassium Level 3.7 Chloride Level 108 Carbon Dioxide Level 26 Anion Gap 8 Blood Urea Nitrogen 23 H Creatinine 1.22 Glucose Level 107 Calcium Level 8.7 JAUN LUEVANO MD Jul 25, 2017 20:14
== END 2017-07-25 15:02 | disposition home or self-care (01) | DRG 639 ==
LOC: E/R 18:01 → OBSVTOIN 07-19 08:18 → PP2 07-19 08:18 → UNDOADMOB 07-19 09:20 → PP2 07-19 10:31
PROVIDERS: ADMIT Internal Medicine; ATTEND Internal Medicine
DX: E11.649 Type 2 diabetes mellitus with hypoglycemia without coma (principal); N17.9 Acute kidney failure, unspecified; I48.91 Unspecified atrial fibrillation; E87.5 Hyperkalemia; I73.9 Peripheral vascular disease, unspecified; T38.3X5A Adverse effect of insulin and oral hypoglycemic [antidiabetic] drugs, initial encounter; I10 Essential (primary) hypertension; Z95.0 Presence of cardiac pacemaker; Z87.891 Personal history of nicotine dependence; Z79.84 Long term (current) use of oral hypoglycemic drugs
CPT/HCPCS: 76775; 80048; 80061; 81003; 82962; 83036; 85025; 93005; 96361; 96372; 96374; 96375; 96376; J1100; J1610; J1815; J2405; J7030